=== PATIENT | male | born 1965 | race Caucasian/White ===

== ENCOUNTER 2016-06-17 08:39 | Day surgery (SDC) | payer BC ==
[~2016-06-17] VITALS: Ht 182.9 cm; Wt 113.0 kg
[~2016-06-17 08:39] MED LIST: CEFAZOLIN 2GM PREMIX 50 ML IV ONE; FENTANYL PF 100 MCG/2 ML VIAL. IV PRN; FURO20TA3 PO; HYDR-2762 PO; HYDROMORPHONE 2 MG/ML VIAL. IV PRN; IV RINGERS,LACTATED 1000ML 1,000 ML IV SCH; LIDOCAINE 1% 1 ML SYRINGE. ID PRN; LOSA50TA6 PO; ONDANSETRON PF 4 MG/2 ML VIAL. IV PRN; PROCHLORPERAZINE 10 MG/2 ML VIAL. IV PRN
[2016-06-17] MEDS ORDERED: DESFLURANE > 120 MINUTES IH ONE (09:27)
[2016-06-17] MEDS ORDERED: ROCURONIUM 50 MG/5 ML VIAL. ONE (09:27)
[2016-06-17] MEDS ORDERED: ONDANSETRON PF 4 MG/2 ML VIAL. ONE (09:27)
[2016-06-17] MEDS ORDERED: PROPOFOL 20 ML IV ONE (09:27)
[2016-06-17] MEDS ORDERED: LIDOCAINE 2% 100 MG/5 ML DISP.SYRIN. ONE (09:27)
[2016-06-17] MEDS ORDERED: DEXAMETHASONE SOD PHOS 20 MG/5 ML VIAL. ONE (09:27)
[2016-06-17] MEDS ORDERED: FENTANYL PF 250 MCG/5 ML VIAL. ONE (09:27)
[2016-06-17] MEDS ORDERED: BUPIVACAINE MPF 0.5% 30 ML VIAL. ONE (10:53)
[2016-06-17] MEDS ORDERED: FAMOTIDINE 20 MG/2 ML VIAL ONE (11:05)
[2016-06-17] MEDS ORDERED: METOCLOPRAMIDE HCL 10 MG/2 ML VIAL. ONE (11:05)
[2016-06-17] MEDS: FENTANYL PF 100 MCG/2 ML VIAL. IV PRN ×4 (12:21→12:55)
--- NOTE | 2016-06-17 12:46 | DISCH ---
DISCHARGE INSTRUCTIONS Condition on Discharge Condition on Discharge: Stable Activity After Discharge Activity Instructions for Disc: Activity as tolerated Other activity instructions: advance slowly as symptoms allow Weight Bearing Status after Di: As tolerated Diet after Discharge Diet after Discharge: Regular Wound Incision Care Wound/Incision Care: Ice to area for comfort Other wound/incision instructi: remove dressing in 2 days may then shower Community/Resources/Services Services at Discharge: PT EVALUATE & TREAT Contacting the DRFam after DC Call your doctor for: Concerns you may have Follow-Up Follow up with: Arianna 7-10 days CANDE PETERS MD Jun 17, 2016 12:46
[2016-06-17] MEDS ORDERED: OXYC-244 PO (12:50)
--- NOTE | 2016-06-17 12:54 | PDOC ---
BRIEF OPERATIVE NOTE Date: Jun 17, 2016 Pre-Op Diagnosis medial meniscus tear plus patellofemoral pain Post-Op Diagnosis same Procedure Performed left knee scope partial medial menisectomy Surgeon Arianna Anesthesia Type: General Blood Loss 5cc Findings above Complications none CANDE PETERS MD Jun 17, 2016 12:54
--- NOTE | 2016-06-17 12:57 | HP ---
ADMIT DATE: 06/17/2016 CHIEF COMPLAINT: Left knee pain. HISTORY OF PRESENT ILLNESS: The patient indicates about a 2-month history of severe atraumatic onset left knee pain. It pops and is very painful, bothers him a lot on stairs, also at night, to a lesser extent throughout the day. He walks on concrete all day. He has gotten some relief from the patellofemoral J-brace, no relief whatsoever from viscosupplementation injections and only about 2 days' worth of relief from our previous corticosteroid injection in his left knee. He describes his pain mainly at the outside lateral aspect of the patellofemoral joint and is initially swelled up following bowling but identifies no other traumatic activity. He had a previous knee arthroscopy about 4 years ago. He says this feels a lot different from previous meniscus tear that he had treated. He is taking [place] for pain, but really cannot get relief at night despite taking about 4 at a time. PAST MEDICAL HISTORY: Hypertension. PAST SURGICAL HISTORY: Previous right knee arthroscopy, hernia repair, and right shoulder surgery. FAMILY HISTORY: Denies any significant family history. SOCIAL HISTORY: Denies smoking. Social drinker of alcohol, denies drug use. MEDICATIONS: List is reviewed. ALLERGIES: He has no known drug allergies. REVIEW OF SYSTEMS: Significant for the right knee pain and swelling. Denies any chest pain, shortness of breath, fever, chills, radiating pain, numbness, tingling, focal weakness, abdominal pain, change in bowel or bladder habits, headache, visual changes, any recent respiratory illnesses, or burning on urination. PHYSICAL EXAMINATION: VITAL SIGNS: Per admission sheet. HEENT: Atraumatic, normocephalic. HEART: Regular rate and rhythm. LUNGS: Clear to auscultation bilaterally. ABDOMEN: Benign. EXTREMITIES: Examination of left knee reveals good patellofemoral tracking without tilt or instability. He is tender over the lateral facet of the patella, more so the medial. I was able to reproduce his pain from him raising up from a squatted position, and a pop was reproduced with deep flexion of the knee. He had more pain with Nakia's maneuver in the front of the knee than over the posterior medial aspect. He has stable ligamentous examination, only a trace effusion. Examination of the contralateral knee shows full range of motion, normal ligamentous stability alignment, normal patellofemoral tracking. He has normal alignment, range of motion of bilateral hips and ankles with intact motor function, distal pulses, sensation, reflexes and skin in both lower extremities throughout. IMAGING: MRI shows a posterior horn medial meniscus tear and a small focus of signal change in the posterior weightbearing portion of lateral femoral condyle, but no abnormality of the overlying cartilage. ASSESSMENT: 1. Apparent patellofemoral pain, left knee. 2. Medial meniscus tear, left knee. TREATMENT PLAN: I went over with him the structure and function of the meniscus, the fact that he does have a tear that could cause the complaints and symptoms that he is having. However, they seem to be much more severe than when he had a meniscus tear previously and describes his pain much more at the patellofemoral joint area, particularly getting up from a seated position and sometimes a very painful pop with stairs. This is very limiting to his activities of daily living. He is unresponsive to previous injection and other treatments including exercises, activity modification, and physical therapy. He favors intervention with a definitive solution to the problem. As a result, I think arthroscopy of the knee is a reasonable option. I did caution him however that I cannot undo any degenerative changes, but we would address any mechanical issues such as potential unstable meniscus tear inside the knee and to the extent possible any loose cartilage. However, if he really has severe patellofemoral changes which seem to be the majority of his clinical symptoms best I can discern, and he has already failed injections, we did talk about the possibility as a backup of the patellofemoral joint replacement procedure and also covered the risks, benefits, postoperative course of that procedure previously and reviewed them today including possibility of continued pain, maltracking, nerve or blood vessel damage, possibility of wear and eventual perhaps conversion to an additional procedure, total knee replacement. All of his questions were answered. As we described that further today, he wants to proceed with surgical evaluation and treatment after having given informed consent preoperatively. CANDE PETERS MD DR: SHIRLEY/gisela JOB#: [id number] / [id number]
[2016-06-17] MEDS: MORPHINE SULFATE 2 MG/ML DISP.SYRIN. IV PRN ×2 (13:03→13:24)
[2016-06-17] MEDS ORDERED: OXYCODONE/APAP 7.5/325 TABLET. PO ONE (13:30)
[2016-06-17 13:56] VITALS: BP 163/94
--- NOTE | 2016-06-18 10:14 | ACF ---
Admission Forms Criteria MUSCULOSKELETAL DISEASE GRG Clinical Indications for Admission to Inpatient Care (Place 'X' for any and all applicable criteria): Hospital admission is needed for appropriate care of the patient because of ANY ONE of the following: [X]I. Fracture, dislocation, or other musculoskeletal injury requiring inpatient care(medical) as indicated by ANY ONE of the following(4)(5)(6)(7) [ ]a) Vertebral fracture requiring observation for instability or neurologic compromise (8) [ ]b) Compartment syndrome (proven or cannot be ruled out during observation level of care) (9) [ ]c) Limb-threatening injury [ ]d) Major injury requiring inpatient stabilization such as traction initiation or external fixation before internal fixation or closure of complex or open fracture [ ]e) Major injury requiring inpatient treatment after emergency or observation level care (as appropriate) [X]f) Severe pain requiring acute inpatient management [ ]II. Newly diagnosed or suspected bone, joint, or orthopedic device infection (e.g., osteomyelitis, septic arthritis) needing ANY ONE of the following(1)(2)(3) [ ]a) IV antibiotics that cannot be initiated in other than inpatient setting (e.g., patient too unstable or home infusion not available) [ ]b) Device removal or replacement [ ]c) Bone or soft tissue debridement [ ]d) Joint drainage (drain placement or repetitive aspirations) [ ]III. Severe rheumatologic disease (e.g., systemic lupus erythematosus, rheumatoid arthritis) with complications or comorbidities (Also use Optimal Recovery Care Criteria or General Recovery Criteria as appropriate on the basis of predominant condition), including ANY ONE of the following(10 )(11)(12)(13) [ ]a) Severe infection (e.g., [employer] infection, sepsis) (14) [ ]b) Respiratory complications, including ANY ONE of the following: [ ]i) Pleural effusion with respiratory compromise [ ]ii) Pulmonary hypertension with congestive failure [ ]iii) Respiratory failure [ ]iv) Pulmonary hemorrhage (15) [ ]c) Hematologic disease, including ANY ONE of the following: [ ]i) Coagulopathy with bleeding [ ]ii) Thrombosis with hypercoagulable state [ ]iii) Thrombotic thrombocytopenic purpura [ ]d) Cerebritis with seizures, psychosis, or other severe abnormalities [ ]e) Vertebral destruction with monitoring needed for cervical myelopathy& possible respiratory compromise [ ]f) Exacerbation that requires inpatient treatment (e.g., intravenous immunosuppression) (16) [ ]g) Acute renal failure [ ]IV. Severe vasculitis with complications or comorbidities (Also use Optimal Recovery Care Criteria or General Recovery Criteria as appropriate on the basis of predominant condition), including ANY ONE of the following(11)(12)(17)(18)(19)(20) [ ]a) [employer] vasculitis with seizures, psychosis, or other severe abnormalities (22) [ ]b) Renal failure (16) [ ]c) Pulmonary hemorrhage (15) [ ]d) Cerebral infarction [ ]e) Gastrointestinal ischemia [ ]f) Gangrene or threatened amputation [ ]g) Exacerbation that requires inpatient treatment (e.g., intravenous immunosuppression) (19)(21) [ ]V. Severe myopathy as indicated by ANY ONE of the following (28)(29) [ ]a) New onset of airway compromise or inability to swallow [ ]b) Respiratory deterioration with observation needed for impending respiratory failure [ ]c) Exacerbation that requires inpatient treatment (e.g., intravenous immunosuppression) [ ]. Severe gout (crystal arthropathy) as indicated by ANY ONE of the following (23)(24) [ ]a) Severe pain requiring acute inpatient management [ ]b) Exacerbation that requires inpatient treatment (e.g., intravenous treatment) [ ]VII.Rhabdomyolysis and ANY ONE of the following (25)(26)(27) [ ]a) Acute renal failure [ ]b) Need for intravenous hydration after emergency or observation level care (as appropriate) [ ]c) Inability to maintain oral hydration [ ]d) Change in mental status [ ]e) Electrolyte abnormality that remains after emergency or observation level care (as appropriate) [ ]VIII Post amputation complication, as indicated by ANY ONE of the following [ ]a) Infection [ ]b) Dehiscence [ ]c) Myodesis failure [ ]IX. Severe pain requiring acute inpatient management as indicated by ALL of the following (30)(31)(32) [ ]a) Continuous or frequent (e.g., every 2 to 4 hrs) parenteral analgesics required [A] [ ]b) Rapid improvement expected from treatment or acute intervention ( e.g., surgery, anesthesia procedure[B] [ ]X. Musculoskeletal Disease and ALL of the following: [ ]a) Symptom or finding for which emergency and observation care have failed or are not considered appropriate (Use General Criteria: Observation Care as appropriate) [ ]b) Presence of ANY ONE of the following [ ]i) A General Admission Criteria [ ]ii) A Pediatric General Admission Criteria The original [facility] content created by [facility] has been revised. The portions of the content which have been revised are identified through the use of italic text or in bold, and [facility] has neither reviewed nor approved the modified material. All other unmodified content is copyright [facility]. Please see references footnoted in the original [facility] edition 2016 Admission Criteria Met?: Yes MARIBETH CARRILLO Jun 18, 2016 10:14
--- NOTE | 2016-06-18 13:14 | OP ---
DATE OF SURGERY: 06/17/2016 PREOPERATIVE DIAGNOSES: Left knee medial meniscus tear and patellofemoral pain. POSTOPERATIVE DIAGNOSES: Confirmed medial meniscus tear and patellofemoral cartilage articulation in excellent condition. DESCRIPTION OF PROCEDURES: Left knee arthroscopy, partial medial meniscectomy. SURGEON: Gee Keller M.D. ANESTHESIA: General. ESTIMATED BLOOD LOSS: About 5 mL. COMPLICATIONS: None. OPERATIVE INDICATIONS: The patient is a 50-year-old male who had a left knee arthroscopy about 4 years ago for a meniscus tear. He states this pain seems different to him. It is severe, sharp, and catching. It bothers him with certain activities. Also aching severely at night and has been unresponsive to any type of nonoperative management. He says it is worse getting up from a chair and from stairs, indicates that pain was improved somewhat by a patellofemoral J brace, but really unresponsive to ongoing therapy. An MRI had shown a posterior horn medial meniscus tear. I went over with him that while arthroscopic evaluation and treatment can to a high degree of reliability deal with mechanical issues such as the meniscus, I cannot undo any type of wear and tear changes, I am concerned with his apparent patellofemoral pain unless it is radiating in nature that if there is severe wear I cannot undo that and we did even talk about the possibility of a patellofemoral replacement if there is not sufficient pathology associated with the meniscus or that the patellofemoral joint appears to be severely involved. He is certainly onboard with this approach and understands the risks, benefits, postoperative course including possible complications of continued pain, nerve or blood vessel damage, medical or other anesthetic complications among others. All his questions were answered. Consent was obtained and he agrees to proceed with operative evaluation and treatment. DESCRIPTION OF PROCEDURE: The patient was identified, procedure verified, patient placed in the supine position on the operating table. After adequate amounts of general endotracheal anesthesia were administered, the left lower extremity was prepped and draped in standard sterile fashion with a thigh tourniquet and side post. The knee was first examined under anesthesia and found to have full range of motion and normal ligamentous stability. After timeout was performed, the patient and procedure identified and verified and the leg had been previously prepped and draped in a standard sterile fashion, the leg was exsanguinated by Esmarch bandage. Tourniquet inflated to 350 mmHg and a lateral portal was established. Medial portal established using spinal needle localization and the knee joint was systematically examined. He was found to have a displaceable tear of the posterior horn of the medial meniscus originating in the area of the posterior root, but the root otherwise had good attachment. This area was displaceable into the joint and could certainly cause significant mechanical symptoms. It involved probably about the inner 40% of the meniscal tissue and was trimmed back to stable tissue using arthroscopic punch and shaver and radiused around appropriately to eliminate any stress risers. No loose bodies were noted in the gutters. The ACL was probed and found to be intact. Lateral meniscus was probed and found to be intact as was the medial and lateral compartment cartilage surfaces. No loose bodies in the suprapatellar pouch. He did have minor chondromalacia of the central facet of the patella and it was very isolated and grade 2-3 in nature. The lateral facet of the patella appeared unaffected. Tracking appeared normal. The corresponding trochlear surface really showed no significant chondromalacia. No debridement was required to the patellofemoral joint and I really could not see significant pathology in the patellofemoral joint either in terms of significant chondromalacia wear or tracking. The knee was drained of arthroscopic fluid. Portals closed with nylon suture. Sterile dressings were applied. Toes were noted to be warm and pink following deflation of the tourniquet. The patient was extubated and transferred to postop holding in stable condition having tolerated the procedure well. GEE KELLER MD DR: SHIRLEY/gisela JOB#: [id number] / [id number] AAKASH Reardon
== END 2016-06-17 14:30 | disposition home or self-care (01) ==
LOC: SURG 08:39
PROVIDERS: ATTEND Orthopaedic Surgery
DX: S83.242A Other tear of medial meniscus, current injury, left knee, initial encounter (principal); E66.9 Obesity, unspecified; F41.9 Anxiety disorder, unspecified; I10 Essential (primary) hypertension; K21.9 Gastro-esophageal reflux disease without esophagitis; X58.XXXA Exposure to other specified factors, initial encounter; Y93.9 Activity, unspecified; Y92.9 Unspecified place or not applicable; Y99.9 Unspecified external cause status; Z72.89 Other problems related to lifestyle
CPT/HCPCS: 29881; 97161; 97530; J0690; J0780; J1100; J2270; J2405; J2704; J2765; J3010; S0028; J3490

== ENCOUNTER 2018-05-10 20:21 | Emergency (ER) | payer OTHER, BC ==
[~2018-05-10] VITALS: Ht 180.3 cm; Wt 108.9 kg
[~2018-05-10 20:21] MED LIST changes: -CEFAZOLIN 2GM PREMIX 50 ML IV ONE; -FENTANYL PF 100 MCG/2 ML VIAL. IV PRN; -HYDR-2762 PO; +HYDR-2765 PO; -HYDROMORPHONE 2 MG/ML VIAL. IV PRN; -IV RINGERS,LACTATED 1000ML 1,000 ML IV SCH; -LIDOCAINE 1% 1 ML SYRINGE. ID PRN; +LOSA-73 PO; -LOSA50TA6 PO; -ONDANSETRON PF 4 MG/2 ML VIAL. IV PRN; +OXYC1TAB19 PO; -PROCHLORPERAZINE 10 MG/2 ML VIAL. IV PRN
[2018-05-10] MEDS ORDERED: HYDROcodone/APAP 5/325MG 1 TAB TABLET PO ONE (20:45)
--- NOTE | 2018-05-10 20:46 | PHYS DOC ---
Past Medical History Past Medical History: Hypertension Additional Past Surgical Histo: R shoulder, R knee scope, hernia repair Smoking: Chew Alcohol Use: Heavy Drug Use: None Social History Narrative: lives with Adult General Chief Complaint Chief Complaint: KNEE INJURY HPI HPI Patient is a 52 year old who presents to the ER, accompanied by his , with complaints of left knee pain. Patient states that approximately 1400 today he was walking to work when he slipped on a piece of ice and twisted his left knee. He states that he did not fall. He denies any numbness, tingling, or weakness of the affected extremity. At rest patient rates his pain a 4 out of 10 on the pain scale with activity or weightbearing patient reports the pain increases to 8 out of 10 on the pain scale. Patient reports that he took a naproxen at home with no relief of symptoms. Review of Systems Review of Systems Constitutional: Denies fever or chills [] Musculoskeletal: Denies back pain; seee HPI Integument: Denies rash or skin lesions [] Neurologic: Denies headache, focal weakness or sensory changes [] Current Medications Current Medications Current Medications Medications (Trade) Dose Ordered Sig/Ashleigh Start Time Stop Time Status Last Admin Dose Admin Acetaminophen/ Hydrocodone Bitart (Lortab 5/325) 1 tab 1X ONCE 05/10/18 20:45 05/10/18 20:46 DC 05/10/18 21:06 1 TAB Allergies Allergies Allergies Coded Allergies Type Severity Reaction Last Updated Verified No Known Drug Allergies 06/17/16 No Physical Exam Physical Exam Constitutional: Well developed, well nourished, no acute distress, non-toxic appearance. [] HENT: Normocephalic, atraumatic, bilateral external ears normal, nose normal. [ ] Eyes: PERRLA, conjunctiva normal, no discharge. [] Skin: Warm, dry, no erythema, no rash. [] Extremities: No cyanosis, no clubbing, ROM intact, 1+ edema noted to anterior left knee, increased pain in L knee with anterior and posterior drawer testing and valgus, stress testing. Neurologic: Alert and oriented X 3, normal motor function, normal sensory function, no focal deficits noted. [] Psychologic: Affect normal, judgement normal, mood normal. [] Current Patient Data Vital Signs Vital Signs Date Time Temp Pulse Resp B/P (MAP) Pulse Ox O2 Delivery O2 Flow Rate FiO2 05/10/18 21:06 19 97 Room Air 05/10/18 20:25 98.3 95 155/86 (109) 98.3 EKG EKG [] Radiology/Procedures Radiology/Procedures L knee xray negative for acute fracture or dislocation, read by Dr. Rodriguez[] Course & Med Decision Making Course & Med Decision Making Pertinent Labs and Imaging studies reviewed. (See chart for details) Dx: L knee sprain Pt placed in knee immobilizer, Rx for hydrocodone. Follow up with your orthopedic Dr. Keller if sx persist, return to the ER if sx worsen. [] Dragon Disclaimer Dragon Disclaimer This electronic medical record was generated, in whole or in part, using a voice recognition dictation system. Departure Departure Impression: Primary Impression: Left knee sprain Disposition: HOME, SELF-CARE Condition: STABLE Referrals: CANDE KELLER MD Patient Instructions: Knee Immobilizer, [id number], Knee Sprain, [id number] Additional Instructions: Fill the prescription and use as directed. Rest, ice, and elevate affected extremity. Follow up with Dr. Keller for further evaluation. Return to the ER if symptoms worsen. Scripts Hydrocodone Bit/Acetaminophen (HYDROCODONE-APAP 5-325 ) 1 Tab Tablet 1 TAB PO PRN Q6HRS PRN for PAIN for 3 Days, #12 TAB 0 Refills Prov: DEENA VELASQUEZ ASSOCIATE [employer] 05/10/18 Problem Qualifiers Primary Impression: Left knee sprain Encounter type: initial encounter Involved ligament of knee: unspecified ligament Qualified Codes: S83.92XA - Sprain of unspecified site of left knee, initial encounter DEENA VELASQUEZ ASSOCIATE [employer] May 10, 2018 20:46
[2018-05-10] MEDS ORDERED: HYDR-2761 PO (21:26)
--- NOTE | 2018-05-11 01:29 | RAD ---
KNEE LEFT 3V History: left medial knee pain,swelling after fall 1 day ago, previous meniscal surgery Comparison: None. Findings: 3 views of the left knee are submitted. No acute fracture or dislocation is identified. Impression: 1. No acute osseous abnormality is identified by radiographs. Electronically signed by: Kolby Iqbal MD (05/10/2018 11:39 PM) [facility]
[2018-06-18] MEDS ORDERED: HYDR-3165 PO (08:09)
== END 2018-05-10 21:50 ==
LOC: ER 20:21
DX: S83.92XA Sprain of unspecified site of left knee, initial encounter (principal); I10 Essential (primary) hypertension; F10.20 Alcohol dependence, uncomplicated; Y90.9 Presence of alcohol in blood, level not specified; F17.220 Nicotine dependence, chewing tobacco, uncomplicated; W00.2XXA Other fall from one level to another due to ice and snow, initial encounter; Y93.01 Activity, walking, marching and hiking; Y92.69 Other specified industrial and construction area as the place of occurrence of the external cause; Y99.0 Civilian activity done for income or pay
CPT/HCPCS: 29505; 73562; 99284-25

== ENCOUNTER → 2018-05-27 | Outpatient (CLI) | payer OTHER, BC ==
[2018-05-10 20:25] VITALS: BP 155/86
[~2018-05-27] MED LIST changes: +ALBU2.5V8 INH; +AZIT250T PO; +BENZ100C PO; +HYDR-2761 PO; +HYDR-3165 PO; +PRED20TA PO
--- NOTE | 2018-05-27 14:19 | KCIC ---
Examination: MRI of the left knee without contrast HISTORY: History of left knee pain, fall COMPARISON: None available TECHNIQUE: Multiplanar, multisequence MR imaging of the left knee was performed without contrast. FINDINGS: The anterior cruciate ligament, posterior cruciate ligament appear intact. There is vertical increased signal identified in the periphery of the body of the medial meniscus likely a tear. There is increased signal identified in the posterior horn of the medial meniscus likely degenerative tear. The lateral meniscus appears intact. The medial collateral ligament is intact. The lateral collateral ligamentous complex including the fibular collateral ligament, biceps femoris tendon, popliteus tendon appear intact. Extensor mechanism is intact. Moderate knee joint effusion is identified. The medial retinaculum, lateral retinaculum appear intact. There is deep fissuring of cartilage identified in the medial compartment. There is mild superficial fraying of cartilage of the lateral compartment femoral compartments The extensor mechanism is intact. IMPRESSION: 1. Tear of the body of the medial meniscus. There is increased signal identified in the posterior horn the medial meniscus probably due to degenerative tear. 2. Grade II chondromalacia medial compartment. 3. Moderate knee joint effusion. 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 Electronically signed by: Shamar Hopkins MD (05/27/2018 2:17 PM) [facility]
== END | disposition home or self-care (01) ==
LOC: KCIC MRI 12:59
PROVIDERS: ATTEND Orthopaedic Surgery
DX: S83.242A Other tear of medial meniscus, current injury, left knee, initial encounter (principal); M94.262 Chondromalacia, left knee; M25.462 Effusion, left knee; M17.12 Unilateral primary osteoarthritis, left knee; X58.XXXA Exposure to other specified factors, initial encounter; Y93.89 Activity, other specified; Y92.89 Other specified places as the place of occurrence of the external cause; Y99.8 Other external cause status
CPT/HCPCS: 73721

== ENCOUNTER 2018-06-18 06:59 | Day surgery (SDC) | payer BC, OTHER ==
[~2018-06-18] VITALS: Ht 182.9 cm; Wt 104.3 kg
[~2018-06-18 06:59] MED LIST changes: -ALBU2.5V8 INH; -AZIT250T PO; -BENZ100C PO; +BUPIVAC MPF-EPI 0.5%-1:200000 30 ML VIAL. ONE; -HYDR-3165 PO; -PRED20TA PO
[2018-06-18] MEDS ORDERED: IV RINGERS,LACTATED 1000ML 1,000 ML IV SCH ×2 (07:00)
[2018-06-18] MEDS ORDERED: ONDANSETRON PF 4 MG/2 ML VIAL. IV PRN ×2 (07:00)
[2018-06-18] MEDS ORDERED: LIDOCAINE 1% PF 2 ML VIAL. ID PRN ×2 (07:00)
[2018-06-18] MEDS ORDERED: MORPHINE SULFATE 2 MG/ML VIAL. IV PRN ×2 (07:00)
[2018-06-18] MEDS ORDERED: HYDROmorphone 2 MG/ML VIAL IV PRN ×2 (07:00)
[2018-06-18] MEDS ORDERED: fentaNYL PF VIAL 100 MCG/2 ML VIAL IV PRN ×4 (07:00)
[2018-06-18] MEDS ORDERED: PROCHLORPERAZINE 10 MG/2 ML VIAL. IV PRN ×2 (07:00)
--- NOTE | 2018-06-18 08:07 | DISCH ---
DISCHARGE INSTRUCTIONS Condition on Discharge Condition on Discharge: Stable Activity After Discharge Activity Instructions for Disc: Activity as tolerated, Other, see below ( slowly advance activity as tolerated) Weight Bearing Status after Di: As tolerated Diet after Discharge Diet after Discharge: Regular Wound Incision Care Wound/Incision Care: Ice to area for comfort, Change dressing (May remove dressing after 2 days may then shower no soaking until sutures removed) Contacting the DRFam after DC Call your doctor for: Concerns you may have Follow-Up Follow up with: Dr. Keller 10 days CANDE KELLER MD Jun 18, 2018 08:07
[2018-06-18] MEDS ORDERED: HYDR-3165 PO (08:09)
[2018-06-18] MEDS ORDERED: fentaNYL PF VIAL 100 MCG/2 ML VIAL ONE (08:17)
[2018-06-18] MEDS ORDERED: DEXAMETHASONE SOD PHOS 20 MG/5 ML VIAL. ONE (08:17)
[2018-06-18] MEDS ORDERED: PROPOFOL 40 ML IV ONE (08:17)
[2018-06-18] MEDS ORDERED: MIDAZOLAM HCL/PF 2 MG/2 ML VIAL. ONE (08:17)
[2018-06-18] MEDS ORDERED: ONDANSETRON PF 4 MG/2 ML VIAL. ONE (08:17)
[2018-06-18] MEDS ORDERED: FAMOTIDINE 20 MG/2 ML VIAL ONE (08:17)
[2018-06-18] MEDS ORDERED: LIDOCAINE 2% PF 5 ML VIAL. ONE (08:17)
[2018-06-18] MEDS ORDERED: KETOROLAC 30 MG/ML INJ FOR OR. INJ ONE (08:37)
--- NOTE | 2018-06-18 09:31 | PDOC4 ---
Operative Note Operative Note Date of surgery: 06/18/2018 Preoperative diagnosis: Medial meniscus tear Postoperative diagnosis: Same plus chondral flap tear medial femoral condyle Operative procedure: Left knee arthroscopy partial medial meniscectomy and chondroplasty medial femoral condyle Surgeon: Arianna Anesthesia: Gen. Estimated blood loss: 2 mL Complications: None Operative indications: Miguel A is a 52-year-old male with pain and mechanical symptoms and swelling of his left knee unresponsive to nonoperative treatment and was noted to have medial meniscus tear on MRI which was consistent with his clinical symptoms. We had gone over structure and function of the meniscus the rationale for removal of the damaged portion and the fact that I cannot undo any degenerative changes in the knee other than that. All his questions were answered he wishes to proceed with surgical evaluation and treatment Operative text: Patient was identified procedure verified patient placed in the supine position on the operating table. After adequate amounts of general anesthesia were administered the left lower extremity was prepped and draped in standard sterile fashion with a thigh tourniquet. After timeout was performed patient procedure identified and verified the left lower extremity was exsanguinated by Esmarch bandage tourniquet inflated to 250 mmHg a lateral portal was established a medial portal established using spinal needle localization and the knee joint was systematically examined patellofemoral articulation was noted to be overall in good condition with minimal chondromalacia and no loose bodies noted in the gutters or suprapatellar pouch area medial meniscus was probed and found to have a displaced tear at the junction of the body and posterior horn he also had significant fraying toward the posterior root. The tear was taken back with arthroscopic punch and shaver to stable meniscal rim throughout any cartilage fragments were removed with the arthroscopic shaver. He also had a partial thickness chondral flap tear of the weightbearing surface centrally in the medial femoral condyle which was trimmed back to stable tissue with the arthroscopic shaver. ACL and lateral meniscus were probed and found to be intact the knee joint was drained of arthroscopic fluid portals closed with nylon suture he was injected with about 25 mL of half percent Marcaine with epinephrine sterile dressings were applied he was returned recovery room in stable condition having tolerated procedure well. Toes were noted be warm pink following deflation of the tourniquet CANDE PETERS MD Jun 18, 2018 09:31
[2018-06-18 10:40] VITALS: BP 130/76
== END 2018-06-18 10:40 | disposition home or self-care (01) ==
LOC: SURG 06:59
PROVIDERS: ATTEND Orthopaedic Surgery
DX: S83.242A Other tear of medial meniscus, current injury, left knee, initial encounter (principal); I10 Essential (primary) hypertension; Z98.890 Other specified postprocedural states; X58.XXXA Exposure to other specified factors, initial encounter; Y93.89 Activity, other specified; Y92.89 Other specified places as the place of occurrence of the external cause; Y99.8 Other external cause status
CPT/HCPCS: 29881; A7015; C1782; J0696; J1100; J1885; J2001; J2250; J2405; J2704; J3010; J3490

== ENCOUNTER 2018-08-24 03:58 | Emergency (ER) | payer BC, OTHER ==
[~2018-08-24] VITALS: Ht 182.9 cm; Wt 104.3 kg
[~2018-08-24 03:58] MED LIST changes: -BUPIVAC MPF-EPI 0.5%-1:200000 30 ML VIAL. ONE; +HYDR-3165 PO
[2018-08-24 04:01] VITALS: BP 152/99
[2018-08-24] MEDS ORDERED: AZIT250T PO (04:24)
[2018-08-24] MEDS ORDERED: ALBU2.5V8 INH (04:24)
[2018-08-24] MEDS ORDERED: PRED20TA PO (04:24)
--- NOTE | 2018-08-24 04:24 | PHYS DOC ---
Past Medical History Past Medical History: Hypertension Additional Past Medical Histor: Pre-diabeties Past Surgical History: Other Additional Past Surgical Histo: R shoulder, R knee scope, hernia repair Additional Information: Nonsmoker Alcohol Use: Heavy Drug Use: None Adult General Chief Complaint Chief Complaint: COUGH HPI HPI 52-year-old male presents with report of progressive cough over the last 1-2 weeks. Patient reports productive in nature. Denies fever or chills. Denies known trauma. Denies leg or calf tenderness. Patient denies known sick contacts. Patient reports cough is worse with laying down. Denies history of COPD/emphysema or CHF. Reports some chest wall discomfort with cough. Review of Systems Review of Systems Constitutional: Denies fever or chills Eyes: Denies redness or eye pain HENT: Reports nasal congestion and sore throat Respiratory: Reports cough, orthopnea, and shortness of breath Cardiovascular: Denies chest pain or palpitations GI: Denies nausea or vomiting : Denies dysuria or hematuria Musculoskeletal: Denies back pain or joint pain Integument: Denies rash or skin lesions Neurologic: Denies headache, focal weakness or sensory changes Complete systems were reviewed and found to be within normal limits, except as documented in this note. Current Medications Current Medications Current Medications Medications (Trade) Dose Ordered Sig/Ashleigh Start Time Stop Time Status Last Admin Dose Admin Dexamethasone (Decadron) 10 mg 1X ONCE 08/24/18 04:30 08/24/18 04:31 DC 08/24/18 04:43 10 MG Allergies Allergies Allergies Coded Allergies Type Severity Reaction Last Updated Verified No Known Drug Allergies 06/17/18 No Physical Exam Physical Exam Constitutional: Well developed, well nourished, no acute distress, non-toxic appearance HENT: Normocephalic, atraumatic, oropharynx moist, nasal congestion noted, post nasal drip noted Eyes: Conjunctiva normal, no discharge Neck: Normal range of motion, no tenderness, supple Cardiovascular: Heart rate normal, regular rhythm Lungs & Thorax: Bilateral breath sounds clear to auscultation, no wheezing Abdomen: Soft, no tenderness, abdominal wall diastasis Skin: Warm, dry, no erythema, no rash Extremities: No tenderness, ROM intact, no edema Neurologic: Alert and oriented X 3, no focal deficits noted Psychologic: Affect normal, judgement normal, mood normal Current Patient Data Vital Signs Vital Signs Date Time Temp Pulse Resp B/P (MAP) Pulse Ox O2 Delivery O2 Flow Rate FiO2 08/24/18 04:01 97.9 81 20 152/99 (116) 91 Room Air 97.9 EKG EKG @0405 NSR at 81bpm, NO ST elevation, Q wave in III, incomplete RBBB Radiology/Procedures Radiology/Procedures 2 view CXR: (preliminary interpretation by ED physician): No acute infiltration, bibasilar atelectasis noted Course & Med Decision Making Course & Med Decision Making Pertinent Imaging studies reviewed. (See chart for details) Patient presents with history of present illness and physical exam consistent for acute bronchitis. Chest x-ray without acute process. EKG stable. Symptomatic treatment provided with oral steroid. Patient stable for discharge with outpatient follow-up with PCP. Discussed findings and plan with patient and family, who acknowledge understanding and agreement. Dragon Disclaimer Dragon Disclaimer This electronic medical record was generated, in whole or in part, using a voice recognition dictation system. Departure Departure Impression: Primary Impression: Bronchitis Disposition: HOME, SELF-CARE Condition: STABLE Referrals: NON,STAFF (PCP) Patient Instructions: Acute Bronchitis, [id number] Scripts Benzonatate (TESSALON PERLE) 100 Mg Capsule 1 CAP PO TID PRN for COUGH, #21 CAP Prov: BRENT SHARMA DO 08/24/18 Azithromycin (ZITHROMAX) 250 Mg Tablet 1 PKG PO UD, #6 TAB Take 2 tablets on day 1 and then 1 tablet each day for the next 4 days as directed Prov: BRENT SHARMA DO 08/24/18 Prednisone (PREDNISONE) 20 Mg Tablet 2 TAB PO DAILY, #8 TAB Start this prescription tomorrow, 08/25/18 Prov: BRENT SHARMA DO 08/24/18 Albuterol Sulfate (Proair Hfa) 8.5 Gm Hfa.aer.ad 1 PUFF INH PRN Q6HRS PRN for WHEEZING, #1 INHALER Prov: BRENT SHARMA DO 08/24/18 BRENT SHARMA DO August 24, 2018 04:24
[2018-08-24] MEDS ORDERED: DEXAMETHASONE 4 MG TABLET PO ONE (04:30)
[2018-08-24] MEDS ORDERED: BENZ100C PO (04:31)
--- NOTE | 2018-08-24 06:15 | EKG ---
[address] [place] [address] Test Date: 2018-08-24 Test Time: 04:05:28 Pat Name: ESTUARDO HI Department: Room: Gender: M Special Education Associate: : 1965 Requested By: BRENT SHARMA Order Number: [id number] Reading MD: Measurements Intervals [place] Rate: 81 P: 47 [place]: 172 QRS: 29 QRSD: 108 T: 22 QT: 380 QTc: 442 Interpretive Statements SINUS RHYTHM INCOMPLETE RIGHT BUNDLE BRANCH BLOCK OTHERWISE NORMAL ECG RI6.01 Unconfirmed report No previous ECG available for comparison
--- NOTE | 2018-08-24 08:16 | RAD ---
CHEST PA LATERAL Clinical indications: Cough. COMPARISON: None available. Findings: Mild left lung base infiltrate is seen in the frontal view. No pleural effusion or pneumothorax is seen. The heart size is mildly enlarged. The pulmonary vasculature, mediastinum and both lily are unremarkable. The osseous structures appear intact. Impression: Mild left lung base infiltrate. Mild cardiomegaly. Electronically signed by: Jian Gore MD (08/24/2018 8:13 AM) [id number]
== END 2018-08-24 04:45 | disposition home or self-care (01) ==
LOC: ER 03:58
DX: J40 Bronchitis, not specified as acute or chronic (principal); R09.82 Postnasal drip; I10 Essential (primary) hypertension; F10.20 Alcohol dependence, uncomplicated; Y90.9 Presence of alcohol in blood, level not specified
CPT/HCPCS: 71046; 93005; 99284; J8540

== ENCOUNTER → 2018-12-10 | Outpatient (CLI) | payer BC ==
[~2018-12-10] MED LIST changes: +ALBU2.5V8 INH; +AZIT250T PO; +BENZ100C PO; +PRED20TA PO
--- NOTE | 2018-12-10 09:31 | KCIC ---
CT HEAD WO CONTRAST History: Seizure, fall, history of alcohol abuse Comparison: None. Technique: Noncontrast CT imaging was performed of the head. Exposure: One or more of the following individualized dose reduction techniques were utilized for this examination: 1. Automated exposure control 2. Adjustment of the mA and/or kV according to patient size 3. Use of iterative reconstruction technique. Findings: No acute hyperdense parenchymal hemorrhage is identified. There is no significant midline shift. Ventricular size is within normal limits. There is mild prominence of bifrontal subarachnoid spaces. There is thin hyperdensity along the falx and anterior left tentorium asymmetric with the right about 0.2 cm in greatest thickness. There is some patchy ethmoid air cell mucosal thickening. There is mild deviation of the nasal septum to the right. Mastoid air cells are aerated. No acute calvarial abnormality is identified. Impression: 1. There is thin hyperdensity along the posterior falx and anterior left tentorium suspicious for tiny subdural hematoma, no previous exam to evaluate for change. Follow-up CT or evaluation with MRI may be beneficial. 2. There is prominence of bifrontal subarachnoid spaces, compatible with involutional change. Findings discussed with nurse Oh in the office of FELIPA DORAN at 12/10/2018 9:28 AM. FOR INTERNAL CODING PURPOSES RESULT CODE: (C) Electronically signed by: Kolby Iqbal MD (12/10/2018 9:28 AM) [id number]
== END | disposition home or self-care (01) ==
LOC: KCIC CT 08:26
PROVIDERS: ATTEND Family Medicine
DX: J34.2 Deviated nasal septum (principal); I10 Essential (primary) hypertension; Z86.59 Personal history of other mental and behavioral disorders; Z86.69 Personal history of other diseases of the nervous system and sense organs
CPT/HCPCS: 70450

== ENCOUNTER → 2018-12-24 | Outpatient (CLI) | payer BC ==
--- NOTE | 2018-12-24 16:55 | KCIC ---
MRI Brain without contrast History: Subdural hematoma, seizure, fall Technique: Multiplanar, multisequential noncontrast MR imaging was performed of the brain. Comparison: December 10, [address] exam Findings: There is no evidence of recent infarct. There is no intra-axial mass effect or midline shift. No extra-axial fluid collection including subdural hematoma is identified on this exam. There is mild generalized supratentorial involutional change, ventricular size proportionate to sulcal spaces. There is very mild T2 and FLAIR hyperintense signal of the periventricular white matter bilaterally, also a few scattered tiny foci of the deep white matter. There is also a somewhat round focus of FLAIR and T2 hyperintense signal of the left temporal lobe image 16 series 10 about 0.5 cm. There is no significant hemosiderin deposition of the brain parenchyma. Right vertebral artery flow-void is not well-visualized and likely hypoplastic. There is slightly disconjugate gaze. There is patchy xfdm-il-[id number] ethmoid air cell mucosal thickening. There is mild deviation of the nasal septum to the right. There is very minimal sphenoid sinus mucosal thickening. Mastoid air cells are aerated. There is nonspecific heterogeneous low signal of the marrow of the clivus. Pituitary gland is small. Cerebellar tonsils are normal in location. Impression: 1. There is no evidence of recent infarct or evidence of subdural hematoma on this exam. 2. There is focus of somewhat round FLAIR and T2 hyperintense signal of the left temporal lobe about 0.5 cm, could be a focus of nonspecific gliosis although given somewhat round margin and history of seizures, post contrast imaging to evaluate for enhancement is advised. There is other minimal nonspecific T2 and FLAIR hyperintense signal of the supratentorial parenchyma which could be due to chronic microvascular ischemic disease. There is mild generalized supratentorial atrophy. 3. There is nonspecific decreased signal of the marrow of the clivus, could be due to hyperplastic red marrow as can be associated with chronic or systemic stress reaction or hypoxia assuming no clinical suspicion for other marrow disorder. Electronically signed by: Kolby Iqbal MD (12/24/2018 4:52 PM) [facility]
== END | disposition home or self-care (01) ==
LOC: KCIC MRI 15:29
PROVIDERS: ATTEND Family Medicine
DX: S06.5X9A Traumatic subdural hemorrhage with loss of consciousness of unspecified duration, initial encounter (principal); G31.89 Other specified degenerative diseases of nervous system; W18.39XA Other fall on same level, initial encounter; Y93.89 Activity, other specified; Y92.89 Other specified places as the place of occurrence of the external cause; Y99.8 Other external cause status
CPT/HCPCS: 70551

== ENCOUNTER 2019-04-26 18:33 | Inpatient (IN) | payer BC ==
[~2019-04-26] VITALS: Ht 182.9 cm; Wt 101.3 kg
--- NOTE | 2019-04-26 18:50 | EKG ---
[facility] [address] [place] [address] Test Date: 2019-04-26 Test Time: 18:41:57 Pat Name: ESTUARDO HI Department: Room: Gender: M Director [employer]: : 1965 Requested By: LOREN MARTINO Order Number: [id number] Reading MD: Measurements Intervals [place] Rate: 83 P: 47 [place]: 158 QRS: 37 QRSD: 102 T: 24 QT: 372 QTc: 443 Interpretive Statements SINUS RHYTHM INCOMPLETE RIGHT BUNDLE BRANCH BLOCK NO SPECIFIC ECG ABNORMALITIES RI6.01 No previous ECG available for comparison
--- NOTE | 2019-04-26 18:50 | PHYS DOC ---
Past Medical History Past Medical History: GERD, Hypertension Additional Past Medical Histor: Pre-diabeties Past Surgical History: Other Additional Past Surgical Histo: R shoulder, R knee scope, hernia repair Alcohol Use: Heavy Drug Use: None Adult General Chief Complaint Chief Complaint: CHEST PAIN HPI HPI 53-year-old male with underlying history of hypertension and diabetes. Patient has a history of not feeling well today states his blood sugar was high. Patient as well describes chest pain in center aspect of his chest with no radiation. Described as dull sensation. He denies any nausea, vomiting, shortness of breath. He does complain of headache. Nothing makes his symptoms worse, nothing makes his symptoms better. States he is on no insulin therapy, just on metformin orally. No recent changes. Review of Systems Review of Systems Constitutional: Denies fever or chills [] Respiratory: Denies cough or shortness of breath [] Cardiovascular: No additional information not addressed in HPI [] GI: Denies abdominal pain, nausea, vomiting, bloody stools or diarrhea [] Musculoskeletal: Denies back pain or joint pain [] Integument: Denies rash or skin lesions [] Neurologic: Denies headache, focal weakness or sensory changes [] All other systems were reviewed and found to be within normal limits, except as documented in this note. Current Medications Current Medications Current Medications Medications (Trade) Dose Ordered Sig/[facility] Start Time Stop Time Status Last Admin Dose Admin Aspirin (Children'S Aspirin) 324 mg 1X ONCE 04/26/19 19:00 04/26/19 19:01 DC 04/26/19 19:01 324 MG Insulin Human Regular (HumuLIN R VIAL) 10 unit 1X ONCE 04/26/19 19:45 04/26/19 19:46 DC 04/26/19 20:23 10 UNIT Nitroglycerin (Nitrostat) 0.4 mg PRN Q5MIN PRN 04/26/19 19:00 04/27/19 18:59 04/26/19 19:02 0.4 MG Sodium Chloride 1,000 ml @ 1,000 mls/hr 1X ONCE 04/26/19 19:45 04/26/19 20:44 DC 04/26/19 20:23 1,000 MLS/HR Allergies Allergies Allergies Coded Allergies Type Severity Reaction Last Updated Verified No Known Drug Allergies 06/17/18 No Physical Exam Physical Exam Constitutional: Well developed, well nourished, no acute distress, non-toxic appearance. [] HENT: Normocephalic, atraumatic, bilateral external ears normal, oropharynx moist, no oral exudates, nose normal. [] Eyes: PERRLA, EOMI, conjunctiva normal, no discharge. [] Cardiovascular:Heart rate regular rhythm, no murmur [] Lungs & Thorax: Bilateral breath sounds clear to auscultation [] Abdomen: Bowel sounds normal, soft, no tenderness, no masses, no pulsatile masses. [] Skin: Warm, dry, no erythema, no rash. [] Back: No tenderness, no CVA tenderness. [] Extremities: No tenderness, no edema. [] Neurologic: Alert and oriented X 3, no focal deficits noted. [] Psychologic: Affect normal, judgement normal, mood normal. [] Current Patient Data Vital Signs Vital Signs Date Time Temp Pulse Resp B/P (MAP) Pulse Ox O2 Delivery O2 Flow Rate FiO2 04/26/19 19:02 76 159/85 04/26/19 18:38 97.8 16 97 Room Air 97.8 Lab Values Laboratory Tests Test 04/26/19 18:44 04/26/19 18:45 04/26/19 19:38 Glucose (Fingerstick) 478 mg/dL (70-99) H White Blood Count 8.5 x10^3/uL (4.0-11.0) Red Blood Count 6.20 x10^6/uL (4.30-5.70) H Hemoglobin 15.5 g/dL (13.0-17.5) Hematocrit 46.3 % (39.0-53.0) Mean Corpuscular Volume 75 fL (79-100) L Mean Corpuscular Hemoglobin 25 pg (25-35) Mean Corpuscular Hemoglobin Concent 34 g/dL (31-37) Red Cell Distribution Width 13.7 % (11.5-14.5) Platelet Count 206 x10^3/uL (140-400) Neutrophils (%) (Auto) 70 % (31-73) Lymphocytes (%) (Auto) 23 % (24-48) L Monocytes (%) (Auto) 5 % (0-9) Eosinophils (%) (Auto) 2 % (0-3) Basophils (%) (Auto) 1 % (0-3) Neutrophils # (Auto) 6.0 x10^3/uL (1.8-7.7) Lymphocytes # (Auto) 1.9 x10^3/uL (1.0-4.8) Monocytes # (Auto) 0.4 x10^3/uL (0.0-1.1) Eosinophils # (Auto) 0.1 x10^3/uL (0.0-0.7) Basophils # (Auto) 0.1 x10^3/uL (0.0-0.2) Sodium Level 130 mmol/L (136-145) L Potassium Level 4.4 mmol/L (3.5-5.1) Chloride Level 95 mmol/L (98-107) L Carbon Dioxide Level 25 mmol/L (21-32) Anion Gap 10 (6-14) Blood Urea Nitrogen 13 mg/dL (8-26) Creatinine 1.1 mg/dL (0.7-1.3) Estimated GFR (Cockcroft-Gault) 69.5 BUN/Creatinine Ratio 12 (6-20) Glucose Level 582 mg/dL (70-99) *H Calcium Level 9.3 mg/dL (8.5-10.1) Magnesium Level 1.8 mg/dL (1.8-2.4) Total Bilirubin 0.6 mg/dL (0.2-1.0) Aspartate Amino Transferase (AST) 15 U/L (15-37) Alanine Aminotransferase (ALT) 20 U/L (16-63) Alkaline Phosphatase 75 U/L (46-116) Troponin I Quantitative < 0.017 ng/mL (0.000-0.055) KP-Dbq-B-Type Natriuretic Peptide 81 pg/mL (0-124) Total Protein 7.2 g/dL (6.4-8.2) Albumin 3.9 g/dL (3.4-5.0) Albumin/Globulin Ratio 1.2 (1.0-1.7) Urine Collection Type Unknown Urine Color Yellow Urine Clarity Clear Urine pH 5.0 Urine Specific [place] >=1.030 Urine Protein Negative mg/dL (NEG-TRACE) Urine Glucose (UA) >=1000 mg/dL (NEG) Urine Ketones (Stick) Negative mg/dL (NEG) Urine Blood Negative (NEG) Urine Nitrite Negative (NEG) Urine Bilirubin Negative (NEG) Urine Urobilinogen Dipstick 0.2 mg/dL (0.2 mg/dL) Urine Leukocyte Esterase Negative (NEG) Urine RBC 0 /HPF (0-2) Urine WBC 0 /HPF (0-4) Urine Squamous Epithelial Cells Occ /LPF Urine Bacteria 0 /HPF (0-FEW) Urine Mucus Slight /LPF Laboratory Tests 04/26/19 18:45 Laboratory Tests 04/26/19 18:45 EKG EKG EKG reveals no STEMI, heart rate 83, normal axis[] Radiology/Procedures Radiology/Procedures [] Course & Med Decision Making Course & Med Decision Making Pertinent Labs and Imaging studies reviewed. (See chart for details) []53-year-old male with underlying history of hypertension and diabetes. Patient has a history of not feeling well today states his blood sugar was high. Patient as well describes chest pain in center aspect of his chest with no radiation. Described as dull sensation. He denies any nausea, vomiting, shortness of breath. He does complain of headache. Nothing makes his symptoms worse, nothing makes his symptoms better. States he is on no insulin therapy, just on metformin orally. No recent changes. Labs and imaging reviewed Cardiac enzymes negative 1, anion gap is 10, blood sugars 582, sodium 1:30, urinalysis negative, EKG as discussed above with no STEMI, heart rate 83, normal axis. He received IV fluids 1 L, 10 units of regular insulin subcutaneous, nitroglycerin, aspirin. Chest pain has resolved Discussed observation admission with patient HEART Score 4 Dragon Disclaimer Dragon Disclaimer This electronic medical record was generated, in whole or in part, using a voice recognition dictation system. The HEART Score for CP Pts HEART Score for Chest Pain: HEART Score for Chest Pain Response (Comments) Value History Moderately Suspicious 1 ECG Nonspecific Repolarizatio 1 Age >45 - < 65 1 Risk Factors 1 or 2 Risk Factors 1 Troponin < Normal Limit 0 Total 4 Risk Factors: Risk Factors: DM, Current or recent (<one month) smoker, HTN, HLP, family history of CAD, obesity. Risk Scores: Score 0 - 3: 2.5% MACE over next 6 weeks - Discharge Home Score 4 - 6: 20.3% MACE over next 6 weeks - Admit for Clinical Observation Score 7 - 10: 72.7% MACE over next 6 weeks - Early Invasive Strategies Departure Departure Impression: Primary Impression: Chest pain Additional Impressions: Uncontrolled diabetes mellitus Hypertension Disposition: 09 ADMITTED INPATIENT Admitting Physician: TOMI Condition: STABLE Referrals: FELIPA DORAN MD (PCP) Problem Qualifiers Primary Impression: Chest pain Chest pain type: unspecified Qualified Codes: R07.9 - Chest pain, unspecified Additional Impressions: Uncontrolled diabetes mellitus Diabetes mellitus type: type 2 Glycemic state: with hyperglycemia Qualified Codes: E11.65 - Type 2 diabetes mellitus with hyperglycemia Hypertension Hypertension type: essential hypertension Qualified Codes: I10 - Essential (primary) hypertension LOREN MARTINO MD Apr 26, 2019 18:50
[2019-04-26 18:58] LABS: BASO # 0.1 x10^3/uL (0.0-0.2); BASO % 1 % (0-3); EOS # 0.1 x10^3/uL (0.0-0.7); EOS % 2 % (0-3); HEMATOCRIT 46.3 % (39.0-53.0); HEMOGLOBIN 15.5 g/dL (13.0-17.5); LYMPH # 1.9 x10^3/uL (1.0-4.8); LYMPH % 23 % (24-48); MEAN CORPUSCULAR HEMOGLOBIN 25 pg (25-35); MEAN CORPUSCULAR HGB CONC 34 g/dL (31-37); MEAN CORPUSCULAR VOLUME 75 fL (79-100); MONO # 0.4 x10^3/uL (0.0-1.1); MONO % 5 % (0-9); NEUT % 70 % (31-73); PLATELET COUNT 206 x10^3/uL (140-400); RED CELL DISTRIBUTION WIDTH 13.7 % (11.5-14.5); WHITE BLOOD COUNT 8.5 x10^3/uL (4.0-11.0)
[2019-04-26] MEDS ORDERED: ASPIRIN CHEWABLE 81 MG TABLET. PO ONE (19:00)
[2019-04-26] MEDS ORDERED: NITROGLYCERIN SUBLINGUAL 0.4 MG BOTTLE OF 25. SL PRN ×2 (19:00→21:00)
[2019-04-26 19:20] LABS: ALBUMIN 3.9 g/dL (3.4-5.0); ALBUMIN/GLOBULIN RATIO 1.2 (1.0-1.7); CALCIUM 9.3 mg/dL (8.5-10.1); CREATININE 1.1 mg/dL (0.7-1.3); GFR 69.5; MAGNESIUM 1.8 mg/dL (1.8-2.4); POTASSIUM 4.4 mmol/L (3.5-5.1); TOTAL BILIRUBIN 0.6 mg/dL (0.2-1.0); TOTAL PROTEIN 7.2 g/dL (6.4-8.2)
--- NOTE | 2019-04-26 19:30 | RAD ---
Examination: PORTABLE CHEST 1V History: Chest pain Comparison/Correlation: None Findings: Portable upright frontal view of the chest was obtained. Heart size and pulmonary vasculature are normal. No infiltrate or pleural effusion. No pneumothorax. Bony structures are unremarkable. Impression: No suspicious process. Electronically signed by: Souleymane Russell MD (04/26/2019 7:27 PM) [id number]
[2019-04-26] MEDS ORDERED: INSULIN REGULAR 100 UNIT/ML 3ML VIAL. SQ ONE (19:45)
[2019-04-26] MEDS ORDERED: IV NORMAL SALINE 1000ML BAG 1,000 ML IV ONE (19:45)
[2019-04-26 19:51] LABS: BILIRUBIN,URINE NEGATIVE (NEG); CLARITY,URINE CLEAR; COLOR,URINE YELLOW; NITRITE,URINE NEGATIVE (NEG); PROTEIN,URINE NEGATIVE (NEG-TRACE); UROBILINOGEN,URINE 0.2 mg/dL (0.2 mg/dL)
[2019-04-26 19:57] LABS: SQUAMOUS EPITHELIAL CELL,UR OCC /LPF
[2019-04-26 19:58] LABS: BACTERIA,URINE 0 /HPF (0-FEW); RBC,URINE 0 /HPF (0-2); WBC,URINE 0 /HPF (0-4)
[2019-04-26] MEDS ORDERED: ONDANSETRON PF 4 MG/2 ML VIAL. IV PRN (21:00)
[2019-04-26] MEDS ORDERED: ACETAMINOPHEN 325 MG TABLET. PO PRN (21:00)
[2019-04-26] MEDS ORDERED: MORPHINE SULFATE 2 MG/ML VIAL. IV PRN (21:00)
[2019-04-26] MEDS ORDERED: DEXTROSE 50% 25 GM / 50ML DISP.SYRIN. IV PRN (21:00)
[2019-04-26] MEDS ORDERED: IV DEXTROSE 5% 250 ML BAG. IV PRN (21:00)
[2019-04-26 22:07] VITALS: BP 103/68
[2019-04-26] MEDS ORDERED: LORA10TA68 PO (23:10)
[2019-04-26] MEDS ORDERED: BUSP5TAB PO (23:10)
[2019-04-26] MEDS ORDERED: METF500T16 PO (23:10)
[2019-04-26] MEDS ORDERED: MELA10TA2 PO (23:10)
[2019-04-26] MEDS ORDERED: ESCI10TA2 PO (23:10)
[2019-04-26] MEDS ORDERED: DOXE10CA PO (23:10)
[2019-04-26] MEDS ORDERED: GLIM1TAB7 PO (23:10)
[2019-04-26] MEDS ORDERED: RANI150T2 PO (23:10)
[2019-04-26] MEDS ORDERED: HYDR25CA75 PO (23:10)
[2019-04-26] MEDS ORDERED: TRAZ-123 PO (23:10)
[2019-04-26] MEDS ORDERED: hydrOXYzine 25 MG TABLET PO PRN (23:30)
[2019-04-26] MEDS ORDERED: HYDROcodone/APAP 7.5/325MG 1 TAB TABLET PO PRN (23:30)
[2019-04-26] MEDS ORDERED: BENZONATATE 100 MG CAPSULE. PO PRN (23:30)
[2019-04-26] MEDS ORDERED: traZODone 100 MG TABLET. PO PRN (23:30)
[2019-04-27] MEDS: ZOLPIDEM 5 MG TABLET. PO PRN ×2 (00:20→21:27)
[2019-04-27 02:23] VITALS: BP 140/75
[2019-04-27 03:24] LABS: BASO % 1 % (0-3); EOS # 0.2 x10^3/uL (0.0-0.7); EOS % 3 % (0-3); HEMATOCRIT 42.4 % (39.0-53.0); HEMOGLOBIN 14.3 g/dL (13.0-17.5); LYMPH # 2.5 x10^3/uL (1.0-4.8); LYMPH % 34 % (24-48); MEAN CORPUSCULAR HEMOGLOBIN 25 pg (25-35); MEAN CORPUSCULAR HGB CONC 34 g/dL (31-37); MEAN CORPUSCULAR VOLUME 74 fL (79-100); MONO # 0.4 x10^3/uL (0.0-1.1); MONO % 6 % (0-9); NEUT # 4.2 x10^3/uL (1.8-7.7); NEUT % 57 % (31-73); PLATELET COUNT 193 x10^3/uL (140-400); RED BLOOD COUNT 5.75 x10^6/uL (4.30-5.70); RED CELL DISTRIBUTION WIDTH 13.8 % (11.5-14.5); WHITE BLOOD COUNT 7.4 x10^3/uL (4.0-11.0)
[2019-04-27 04:53] LABS: ALBUMIN 3.4 g/dL (3.4-5.0); ALBUMIN/GLOBULIN RATIO 1.1 (1.0-1.7); CALCIUM 8.8 mg/dL (8.5-10.1); CREATININE 1.1 mg/dL (0.7-1.3); GFR 69.5; POTASSIUM 3.8 mmol/L (3.5-5.1); TOTAL BILIRUBIN 0.4 mg/dL (0.2-1.0); TOTAL PROTEIN 6.4 g/dL (6.4-8.2)
[2019-04-27 07:50] VITALS: BP 129/78
[2019-04-27 11:35] VITALS: BP 135/75
[2019-04-27] MEDS: INSULIN LISPRO 300 UNITS/3 ML VIAL. SQ SCH ×3 (12:00→17:53)
--- NOTE | 2019-04-27 12:28 | PDOC2 ---
EBONY QUEEN MEDICAL SECRETARY RECEPTIONIST 04/27/19 1228: CARDIAC CONSULT DATE OF CONSULT Date of Consult DATE: 04/27/19 TIME: 12:24 REASON FOR CONSULT Reason for Consult: Chest pain Hypertension REFERRING PHYSICIAN Referring Physician: Dr. Gonzales SOURCE Source: Chart review, Patient HISTORY OF PRESENT ILLNESS HISTORY OF PRESENT ILLNESS This is a 53 yo male who presented secondary to chest pain and elevated glucose. Patient reports pain began yesterday around noon. Located in his central chest. Describes as dull ache. [place] slightly dizzy. No shortness of breath, diaphoresis, palpitations, or nausea/vomiting. Pain persisted so he can to the ED for further evaluation and treatment. Pain relieved with nitro in ED and has had no further pain overnight or today. PAST MEDICAL HISTORY Cardiovascular: HTN Pulmonary: Other (ZACARIAS) CENTRAL NERVOUS SYSTEM: Seizure GI: GERD Psych: Anxiety Musculoskeletal: Osteoarthritis Endocrine: Diabetes PAST SURGICAL HISTORY Past Surgical History: Hernia Repair FAMILY HISTORY Family History: Other (no pertinent histroy ) SOCIAL HISTORY Smoke: Quit ALCOHOL: other (h/o alcoholism; quit 114 days ago) Drugs: None Lives: with Family CURRENT MEDICATIONS CURRENT MEDICATIONS Current Medications Medications (Trade) Dose Ordered Sig/Ashleigh Route PRN Reason Start Time Stop Time Status Last Admin Dose Admin Aspirin (Children'S Aspirin) 324 mg 1X ONCE PO 04/26/19 19:00 04/26/19 19:01 DC 04/26/19 19:01 Nitroglycerin (Nitrostat) 0.4 mg PRN Q5MIN PRN SL CP RATING > 1/10 04/26/19 19:00 04/27/19 18:59 04/26/19 19:02 Sodium Chloride 1,000 ml @ 1,000 mls/hr 1X ONCE IV 04/26/19 19:45 04/26/19 20:44 DC 04/26/19 20:23 Insulin Human Regular (HumuLIN R VIAL) 10 unit 1X ONCE SQ 04/26/19 19:45 04/26/19 19:46 DC 04/26/19 20:23 Zolpidem Tartrate (Ambien) 5 mg PRN QHS PRN PO INSOMNIA 04/26/19 23:30 04/27/19 00:20 ALLERGIES ALLERGIES: Coded Allergies: No Known Drug Allergies (Unverified , 06/17/18) ROS Review of System 14 point ROS conducted with pertinent positives noted above in HPi PHYSICAL EXAM General: Alert, Oriented X3, Cooperative, No acute distress HEENT: Atraumatic, Mucous membr. moist/pink Lungs: Clear to auscultation, Normal air movement Heart: Regular rate, Normal S1, Normal S2 Abdomen: Soft, No tenderness Extremities: No edema, Normal pulses Skin: No breakdown, No significant lesion Neuro: Normal speech, Sensation intact Psych/Mental Status: Mental status NL, Mood NL MUSCULOSKELETAL: Osteoarthritic changes both hands VITALS/I&O VITALS/I&O: Vital Signs Date Time Temp Pulse Resp B/P (MAP) Pulse Ox O2 Delivery O2 Flow Rate FiO2 04/27/19 11:35 65 135/75 (95) 96 Room Air 04/27/19 07:50 98.0 16 98.0 I & O 04/26/19 04/26/19 04/27/19 15:00 23:00 07:00 Intake Total 1000 ml 500 ml Output Total 500 ml Balance 500 ml 500 ml LABS Lab: Laboratory Tests Test 04/26/19 18:44 04/26/19 18:45 04/26/19 19:38 04/26/19 21:22 Glucose (Fingerstick) 478 mg/dL (70-99) H 394 mg/dL (70-99) H White Blood Count 8.5 x10^3/uL (4.0-11.0) Red Blood Count 6.20 x10^6/uL (4.30-5.70) H Hemoglobin 15.5 g/dL (13.0-17.5) Hematocrit 46.3 % (39.0-53.0) Mean Corpuscular Volume 75 fL (79-100) L Mean Corpuscular Hemoglobin 25 pg (25-35) Mean Corpuscular Hemoglobin Concent 34 g/dL (31-37) Red Cell Distribution Width 13.7 % (11.5-14.5) Platelet Count 206 x10^3/uL (140-400) Neutrophils (%) (Auto) 70 % (31-73) Lymphocytes (%) (Auto) 23 % (24-48) L Monocytes (%) (Auto) 5 % (0-9) Eosinophils (%) (Auto) 2 % (0-3) Basophils (%) (Auto) 1 % (0-3) Neutrophils # (Auto) 6.0 x10^3/uL (1.8-7.7) Lymphocytes # (Auto) 1.9 x10^3/uL (1.0-4.8) Monocytes # (Auto) 0.4 x10^3/uL (0.0-1.1) Eosinophils # (Auto) 0.1 x10^3/uL (0.0-0.7) Basophils # (Auto) 0.1 x10^3/uL (0.0-0.2) Sodium Level 130 mmol/L (136-145) L Potassium Level 4.4 mmol/L (3.5-5.1) Chloride Level 95 mmol/L (98-107) L Carbon Dioxide Level 25 mmol/L (21-32) Anion Gap 10 (6-14) Blood Urea Nitrogen 13 mg/dL (8-26) Creatinine 1.1 mg/dL (0.7-1.3) Estimated GFR (Cockcroft-Gault) 69.5 BUN/Creatinine Ratio 12 (6-20) Glucose Level 582 mg/dL (70-99) *H Calcium Level 9.3 mg/dL (8.5-10.1) Magnesium Level 1.8 mg/dL (1.8-2.4) Total Bilirubin 0.6 mg/dL (0.2-1.0) Aspartate Amino Transferase (AST) 15 U/L (15-37) Alanine Aminotransferase (ALT) 20 U/L (16-63) Alkaline Phosphatase 75 U/L (46-116) Troponin I Quantitative < 0.017 ng/mL (0.000-0.055) TB-Zjf-A-Type Natriuretic Peptide 81 pg/mL (0-124) Total Protein 7.2 g/dL (6.4-8.2) Albumin 3.9 g/dL (3.4-5.0) Albumin/Globulin Ratio 1.2 (1.0-1.7) Urine Collection Type Unknown Urine Color Yellow Urine Clarity Clear Urine pH 5.0 Urine Specific Sharon >=1.030 Urine Protein Negative mg/dL (NEG-TRACE) Urine Glucose (UA) >=1000 mg/dL (NEG) Urine Ketones (Stick) Negative mg/dL (NEG) Urine Blood Negative (NEG) Urine Nitrite Negative (NEG) Urine Bilirubin Negative (NEG) Urine Urobilinogen Dipstick 0.2 mg/dL (0.2 mg/dL) Urine Leukocyte Esterase Negative (NEG) Urine RBC 0 /HPF (0-2) Urine WBC 0 /HPF (0-4) Urine Squamous Epithelial Cells Occ /LPF Urine Bacteria 0 /HPF (0-FEW) Urine Mucus Slight /LPF Test 04/26/19 23:55 04/27/19 03:00 04/27/19 07:54 04/27/19 11:35 Troponin I Quantitative < 0.017 ng/mL (0.000-0.055) < 0.017 ng/mL (0.000-0.055) White Blood Count 7.4 x10^3/uL (4.0-11.0) Red Blood Count 5.75 x10^6/uL (4.30-5.70) H Hemoglobin 14.3 g/dL (13.0-17.5) Hematocrit 42.4 % (39.0-53.0) Mean Corpuscular Volume 74 fL (79-100) L Mean Corpuscular Hemoglobin 25 pg (25-35) Mean Corpuscular Hemoglobin Concent 34 g/dL (31-37) Red Cell Distribution Width 13.8 % (11.5-14.5) Platelet Count 193 x10^3/uL (140-400) Neutrophils (%) (Auto) 57 % (31-73) Lymphocytes (%) (Auto) 34 % (24-48) Monocytes (%) (Auto) 6 % (0-9) Eosinophils (%) (Auto) 3 % (0-3) Basophils (%) (Auto) 1 % (0-3) Neutrophils # (Auto) 4.2 x10^3/uL (1.8-7.7) Lymphocytes # (Auto) 2.5 x10^3/uL (1.0-4.8) Monocytes # (Auto) 0.4 x10^3/uL (0.0-1.1) Eosinophils # (Auto) 0.2 x10^3/uL (0.0-0.7) Basophils # (Auto) 0.0 x10^3/uL (0.0-0.2) Sodium Level 138 mmol/L (136-145) Potassium Level 3.8 mmol/L (3.5-5.1) Chloride Level 101 mmol/L (98-107) Carbon Dioxide Level 27 mmol/L (21-32) Anion Gap 10 (6-14) Blood Urea Nitrogen 15 mg/dL (8-26) Creatinine 1.1 mg/dL (0.7-1.3) Estimated GFR (Cockcroft-Gault) 69.5 BUN/Creatinine Ratio 14 (6-20) Glucose Level 278 mg/dL (70-99) H Calcium Level 8.8 mg/dL (8.5-10.1) Total Bilirubin 0.4 mg/dL (0.2-1.0) Aspartate Amino Transferase (AST) 10 U/L (15-37) L Alanine Aminotransferase (ALT) 19 U/L (16-63) Alkaline Phosphatase 64 U/L (46-116) Total Protein 6.4 g/dL (6.4-8.2) Albumin 3.4 g/dL (3.4-5.0) Albumin/Globulin Ratio 1.1 (1.0-1.7) Glucose (Fingerstick) 239 mg/dL (70-99) H 282 mg/dL (70-99) H Laboratory Tests 04/26/19 18:45 04/27/19 03:00 Laboratory Tests 04/26/19 18:45 04/27/19 03:00 ASSESSMENT/PLAN ASSESSMENT/PLAN Chest pain, atypical; AMI ruled out. Possible GI in nature Hypertension; controlled Diabetes, II; uncontrolled GERD Anxiety H/o heavy alcoholism; quit 114 days ago Recommendations Echo to assess LV systolic function Lipids PPI Needs follow with PCP for DM management Consider outpatient MPI. JEANETTE GOMEZ MD 04/27/19 1923: CARDIAC CONSULT ASSESSMENT/PLAN ASSESSMENT/PLAN Patient seen and examined, Agree with [employer]'s assessment and plan. CP with atypical features IN ruled out Check 2D echo to assess LVF and r/o WMA Plan ischemic evaluation as outpatient Thank you for your consultation EBONY QUEEN APRN Apr 27, 2019 12:28 JEANETTE GOMEZ MD Apr 27, 2019 19:23
[2019-04-27 12:49] LABS: CHOLESTEROL/HDL RATIO 6.2
[2019-04-27] MEDS: CITALOPRAM 20 MG TABLET. PO SCH (13:09)
[2019-04-27] MEDS: busPIRone 5 MG TABLET. PO SCH (13:09)
[2019-04-27] MEDS: metFORMIN 500 MG TABLET PO SCH (13:09)
[2019-04-27] MEDS: GLIMEPIRIDE 2 MG TABLET. PO SCH (13:10)
[2019-04-27] MEDS: FAMOTIDINE 20 MG TABLET. PO SCH ×2 (13:10→21:28)
--- NOTE | 2019-04-27 14:51 | NUR ---
SS following for discharge planning. SS reviewed pt chart. Pt is from home with spouse and is currently on room air. SS will continue to follow for discharge planning.
--- NOTE | 2019-04-27 15:08 | PDOC1 ---
History and Physical Date of Admission: Date of Admission DATE: 04/27/19 TIME: 15:05 Chief Complaint: Problems: (1) Left knee sprain (2) Chest pain (3) Hypertension (4) Uncontrolled diabetes mellitus Chief Complain: Chest pain History of Present Illness: HPI: This is a 53-year-old male who presented to the emergency room with chest pain He has known diabetes and hypertension Describes pain is irritating His blood sugars have been running high The chest pain is in center of his chest no radiation Pain as pressure-like in sensation and dull He tried increasing his home meds but that didn't help Moving makes it worse sitting still makes it better I discussed the case with ER physician We are admitting the patient with consultation to cardiology Past Medical/Surgical History: PMH/PSH: Past Medical History: GERD, Hypertension Additional Past Medical Histor: Pre-diabeties Past Surgical History: Other Additional Past Surgical Histo: R shoulder, R knee scope, hernia repair Alcohol Use: Heavy Drug Use: None Allergies: Allergies: Coded Allergies: No Known Drug Allergies (Unverified , 06/17/18) Family History: Family History: Coronary disease Social History: Social Hisoty: He does not drink smoke or take drugs Current Medications: Current Medications Current Medications Aspirin (Children'S Aspirin) 324 mg 1X ONCE PO Last administered on 04/26/19at 19:01; Start 04/26/19 at 19:00; Stop 04/26/19 at 19:01; Status DC Nitroglycerin (Nitrostat) 0.4 mg PRN Q5MIN PRN SL CP RATING > 1/10 Last administered on 04/26/19at 19:02; Start 04/26/19 at 19:00; Stop 04/27/19 at 18:59 Sodium Chloride 1,000 ml @ 1,000 mls/hr 1X ONCE IV Last administered on 04/26/19at 20:23; Start 04/26/19 at 19:45; Stop 04/26/19 at 20:44; Status DC Insulin Human Regular (HumuLIN R VIAL) 10 unit 1X ONCE SQ Last administered on 04/26/19at 20:23; Start 04/26/19 at 19:45; Stop 04/26/19 at 19:46; Status DC Ondansetron HCl (Zofran) 4 mg PRN Q8HRS PRN IV NAUSEA/VOMITING; Start 04/26/19 at 21:00; Stop 04/27/19 at 20:59 Morphine Sulfate (Morphine Sulfate) 2 mg PRN Q2HR PRN IV PAIN; Start 04/26/19 at 21:00; Stop 04/27/19 at 20:59 Acetaminophen (Tylenol) 650 mg PRN Q4HRS PRN PO FEVER; Start 04/26/19 at 21:00; Stop 04/27/19 at 20:59 Nitroglycerin (Nitrostat) 0.4 mg PRN Q5MIN PRN SL CHEST PAIN; Start 04/26/19 at 21:00; Stop 04/27/19 at 20:59 Insulin Human Lispro (HumaLOG) 0-7 UNITS TIDWMEALS SQ Last administered on 04/27/19at 13:20; Start 04/27/19 at 08:00 Dextrose (Dextrose 50%-Water Syringe) 12.5 gm PRN Q15MIN PRN IV SEE COMMENTS; Start 04/26/19 at 21:00 Dextrose (Iv Dextrose 5%) 250 ml PRN Q15MIN PRN IV SEE COMMENTS; Start 04/26/19 at 21:00 Zolpidem Tartrate (Ambien) 5 mg PRN QHS PRN PO INSOMNIA Last administered on 04/27/19at 00:20; Start 04/26/19 at 23:30 Benzonatate (Tessalon Perle) 100 mg PRN TID PRN PO COUGH; Start 04/26/19 at 23:30 Buspirone HCl (Buspar) 5 mg DAILY PO Last administered on 04/27/19at 13:09; Start 04/27/19 at 09:00 Doxepin HCl (SINequan) 10 mg HS PO ; Start 04/27/19 at 21:00 Acetaminophen/ Hydrocodone Bitart (Lortab 7.5/325) 1 tab PRN Q4HRS PRN PO PAIN; Start 04/26/19 at 23:30 Metformin HCl (Glucophage) 500 mg DAILYWBKFT PO Last administered on 04/27/19at 13:09; Start 04/27/19 at 08:00 Trazodone HCl (Desyrel) 100 mg PRN QHS PRN PO insomnia ; Start 04/26/19 at 23:30 Citalopram Hydrobromide (CeleXA) 20 mg DAILY PO Last administered on 04/27/19at 13:09; Start 04/27/19 at 09:00 Glimepiride (Amaryl) 1 mg DAILY PO Last administered on 04/27/19at 13:10; Start 04/27/19 at 09:00 Hydroxyzine HCl (Atarax) 25 mg PRN Q4HRS PRN PO ALLERGIES; Start 04/26/19 at 23:30 Non-Formulary Medication (Melatonin ) 40 mg HS PO ; Start 04/27/19 at 21:00; Status UNV Famotidine (Pepcid) 20 mg BID PO Last administered on 04/27/19at 13:10; Start 04/27/19 at 09:00 Active Scripts Active Tessalon Perle (Benzonatate) 100 Mg Capsule 1 Cap PO TID PRN Proair Hfa (Albuterol Sulfate) 8.5 Gm Hfa.aer.ad 1 Puff INH PRN Q6HRS PRN Neeses 7.5-325 Tablet (Acetaminophen/Hydrocodone Bitart) 1 Each Tablet 1 Tab PO PRN Q4HRS PRN Reported Glimepiride 1 Mg Tablet 1 Mg PO DAILY Buspirone Hcl 5 Mg Tablet 5 Mg PO TID Hydroxyzine Pamoate 25 Mg Capsule 25 Mg PO PRN Q4HRS PRN Melatonin 10 Mg Tab.mphase 40 Mg PO HS Trazodone Hcl 100 Mg Tablet 100 Mg PO PRN HS Escitalopram Oxalate 10 Mg Tablet 10 Mg PO DAILY Claritin (Loratadine) 10 Mg Tablet 10 Mg PO DAILY Ranitidine Hcl 150 Mg Tablet 150 Mg PO BID Doxepin Hcl 10 Mg Capsule 10 Mg PO HS Metformin Hcl 500 Mg Tablet 500 Mg PO DAILY ROS: Review of Systems Review of System REVIEW OF SYSTEMS: GENERAL: Denies weakness SKIN: No bruising, hair changes or rashes. EYES: No blurred, double or loss of vision. NOSE AND THROAT: No history of nosebleeds, hoarseness or sore throat. HEART: Complains of chest pain LUNGS: Denies cough, hemoptysis, wheezing or shortness of breath. GASTROINTESTINAL: Denies changes in appetite, nausea, vomiting, diarrhea or constipation. GENITOURINARY: No history of frequency, urgency, hesitancy or nocturia. NEUROLOGIC: Denies history of numbness, tingling, or tremor. PSYCHIATRIC: No history of panic, anxiety or depression. ENDOCRINE: No history of heat or cold intolerance, polyuria or polydipsia. EXTREMITIES: Denies joint pain, pain on walking or stiffness. Physical Exam: Vital Signs: Vital Signs Date Time Temp Pulse Resp B/P (MAP) Pulse Ox O2 Delivery O2 Flow Rate FiO2 04/27/19 11:35 65 135/75 (95) 96 Room Air 04/27/19 07:50 98.0 16 98.0 Physcial Exam: GEN: No apparent distress. Alert and oriented HEENT: Normal cephalic, atraumatic, external auditory canals are patent EYES: Extraocular muscles are intact, pupil are equally round and reactive to light and accommodation MUSCULOSKELETAL: Well developed , well nourished, good range of motion ENDOCRINE: No thyromegaly was palpated LYMPHATICS: No cervical chain or axillary nodes were noted HEMATOPOIETIC: No bruising NECK: Supple, no JVD, no thyromegaly was noted LUNGS: Clear to auscultation in all lung [place] without rhonchi or wheezing HEART: RRR, S!, S2 present. Peripheral pulses intact, no obvious murmurs noted ABDOMEN: Soft, nontender. Positive bowel sounds, no organomegaly, normal angela l sounds EXTREMITIES: Without clubbing, cyanosis, or edema. Pedal pulses intact. Negative Homans sign NEUROLOGIC: Normal speech and tone. A&O x 3, moves all extremities, no obvious focal deficits PSYCHIATRIC: Normal affect, normal mood. Stable SKIN: No ulcerations or rashes, good skin turgor, no jaundice VASCULAR: Good capillary refill, neurovascular bundle appears to be intact Labs: Labs: Laboratory Tests Test 04/26/19 18:44 04/26/19 18:45 04/26/19 19:38 04/26/19 21:22 Glucose (Fingerstick) 478 mg/dL (70-99) 394 mg/dL (70-99) White Blood Count 8.5 x10^3/uL (4.0-11.0) Red Blood Count 6.20 x10^6/uL (4.30-5.70) Hemoglobin 15.5 g/dL (13.0-17.5) Hematocrit 46.3 % (39.0-53.0) Mean Corpuscular Volume 75 fL (79-100) Mean Corpuscular Hemoglobin 25 pg (25-35) Mean Corpuscular Hemoglobin Concent 34 g/dL (31-37) Red Cell Distribution Width 13.7 % (11.5-14.5) Platelet Count 206 x10^3/uL (140-400) Neutrophils (%) (Auto) 70 % (31-73) Lymphocytes (%) (Auto) 23 % (24-48) Monocytes (%) (Auto) 5 % (0-9) Eosinophils (%) (Auto) 2 % (0-3) Basophils (%) (Auto) 1 % (0-3) Neutrophils # (Auto) 6.0 x10^3/uL (1.8-7.7) Lymphocytes # (Auto) 1.9 x10^3/uL (1.0-4.8) Monocytes # (Auto) 0.4 x10^3/uL (0.0-1.1) Eosinophils # (Auto) 0.1 x10^3/uL (0.0-0.7) Basophils # (Auto) 0.1 x10^3/uL (0.0-0.2) Sodium Level 130 mmol/L (136-145) Potassium Level 4.4 mmol/L (3.5-5.1) Chloride Level 95 mmol/L (98-107) Carbon Dioxide Level 25 mmol/L (21-32) Anion Gap 10 (6-14) Blood Urea Nitrogen 13 mg/dL (8-26) Creatinine 1.1 mg/dL (0.7-1.3) Estimated GFR (Cockcroft-Gault) 69.5 BUN/Creatinine Ratio 12 (6-20) Glucose Level 582 mg/dL (70-99) Calcium Level 9.3 mg/dL (8.5-10.1) Magnesium Level 1.8 mg/dL (1.8-2.4) Total Bilirubin 0.6 mg/dL (0.2-1.0) Aspartate Amino Transf (AST/SGOT) 15 U/L (15-37) Alanine Aminotransferase (ALT/SGPT) 20 U/L (16-63) Alkaline Phosphatase 75 U/L (46-116) Troponin I Quantitative < 0.017 ng/mL (0.000-0.055) OG-Dxa-X-Type Natriuretic Peptide 81 pg/mL (0-124) Total Protein 7.2 g/dL (6.4-8.2) Albumin 3.9 g/dL (3.4-5.0) Albumin/Globulin Ratio 1.2 (1.0-1.7) Urine Collection Type Unknown Urine Color Yellow Urine Clarity Clear Urine pH 5.0 Urine Specific Stanley >=1.030 Urine Protein Negative mg/dL (NEG-TRACE) Urine Glucose (UA) >=1000 mg/dL (NEG) Urine Ketones (Stick) Negative mg/dL (NEG) Urine Blood Negative (NEG) Urine Nitrite Negative (NEG) Urine Bilirubin Negative (NEG) Urine Urobilinogen Dipstick 0.2 mg/dL (0.2 mg/dL) Urine Leukocyte Esterase Negative (NEG) Urine RBC 0 /HPF (0-2) Urine WBC 0 /HPF (0-4) Urine Squamous Epithelial Cells Occ /LPF Urine Bacteria 0 /HPF (0-FEW) Urine Mucus Slight /LPF Test 04/26/19 23:55 04/27/19 03:00 04/27/19 07:54 04/27/19 11:35 Troponin I Quantitative < 0.017 ng/mL (0.000-0.055) < 0.017 ng/mL (0.000-0.055) White Blood Count 7.4 x10^3/uL (4.0-11.0) Red Blood Count 5.75 x10^6/uL (4.30-5.70) Hemoglobin 14.3 g/dL (13.0-17.5) Hematocrit 42.4 % (39.0-53.0) Mean Corpuscular Volume 74 fL (79-100) Mean Corpuscular Hemoglobin 25 pg (25-35) Mean Corpuscular Hemoglobin Concent 34 g/dL (31-37) Red Cell Distribution Width 13.8 % (11.5-14.5) Platelet Count 193 x10^3/uL (140-400) Neutrophils (%) (Auto) 57 % (31-73) Lymphocytes (%) (Auto) 34 % (24-48) Monocytes (%) (Auto) 6 % (0-9) Eosinophils (%) (Auto) 3 % (0-3) Basophils (%) (Auto) 1 % (0-3) Neutrophils # (Auto) 4.2 x10^3/uL (1.8-7.7) Lymphocytes # (Auto) 2.5 x10^3/uL (1.0-4.8) Monocytes # (Auto) 0.4 x10^3/uL (0.0-1.1) Eosinophils # (Auto) 0.2 x10^3/uL (0.0-0.7) Basophils # (Auto) 0.0 x10^3/uL (0.0-0.2) Sodium Level 138 mmol/L (136-145) Potassium Level 3.8 mmol/L (3.5-5.1) Chloride Level 101 mmol/L (98-107) Carbon Dioxide Level 27 mmol/L (21-32) Anion Gap 10 (6-14) Blood Urea Nitrogen 15 mg/dL (8-26) Creatinine 1.1 mg/dL (0.7-1.3) Estimated GFR (Cockcroft-Gault) 69.5 BUN/Creatinine Ratio 14 (6-20) Glucose Level 278 mg/dL (70-99) Calcium Level 8.8 mg/dL (8.5-10.1) Total Bilirubin 0.4 mg/dL (0.2-1.0) Aspartate Amino Transf (AST/SGOT) 10 U/L (15-37) Alanine Aminotransferase (ALT/SGPT) 19 U/L (16-63) Alkaline Phosphatase 64 U/L (46-116) Total Protein 6.4 g/dL (6.4-8.2) Albumin 3.4 g/dL (3.4-5.0) Albumin/Globulin Ratio 1.1 (1.0-1.7) Triglycerides Level 311 mg/dL (0-150) Cholesterol Level 185 mg/dL (0-200) LDL Cholesterol, Calculated 93 mg/dL (0-100) VLDL Cholesterol, Calculated 62 mg/dL (0-40) Non-HDL Cholesterol Calculated 155 mg/dL (0-129) HDL Cholesterol 30 mg/dL (40-60) Cholesterol/HDL Ratio 6.2 Glucose (Fingerstick) 239 mg/dL (70-99) 282 mg/dL (70-99) Laboratory Tests Test 04/26/19 18:44 04/26/19 18:45 04/26/19 19:38 04/26/19 21:22 Glucose (Fingerstick) 478 mg/dL (70-99) 394 mg/dL (70-99) White Blood Count 8.5 x10^3/uL (4.0-11.0) Red Blood Count 6.20 x10^6/uL (4.30-5.70) Hemoglobin 15.5 g/dL (13.0-17.5) Hematocrit 46.3 % (39.0-53.0) Mean Corpuscular Volume 75 fL (79-100) Mean Corpuscular Hemoglobin 25 pg (25-35) Mean Corpuscular Hemoglobin Concent 34 g/dL (31-37) Red Cell Distribution Width 13.7 % (11.5-14.5) Platelet Count 206 x10^3/uL (140-400) Neutrophils (%) (Auto) 70 % (31-73) Lymphocytes (%) (Auto) 23 % (24-48) Monocytes (%) (Auto) 5 % (0-9) Eosinophils (%) (Auto) 2 % (0-3) Basophils (%) (Auto) 1 % (0-3) Neutrophils # (Auto) 6.0 x10^3/uL (1.8-7.7) Lymphocytes # (Auto) 1.9 x10^3/uL (1.0-4.8) Monocytes # (Auto) 0.4 x10^3/uL (0.0-1.1) Eosinophils # (Auto) 0.1 x10^3/uL (0.0-0.7) Basophils # (Auto) 0.1 x10^3/uL (0.0-0.2) Sodium Level 130 mmol/L (136-145) Potassium Level 4.4 mmol/L (3.5-5.1) Chloride Level 95 mmol/L (98-107) Carbon Dioxide Level 25 mmol/L (21-32) Anion Gap 10 (6-14) Blood Urea Nitrogen 13 mg/dL (8-26) Creatinine 1.1 mg/dL (0.7-1.3) Estimated GFR (Cockcroft-Gault) 69.5 BUN/Creatinine Ratio 12 (6-20) Glucose Level 582 mg/dL (70-99) Calcium Level 9.3 mg/dL (8.5-10.1) Magnesium Level 1.8 mg/dL (1.8-2.4) Total Bilirubin 0.6 mg/dL (0.2-1.0) Aspartate Amino Transf (AST/SGOT) 15 U/L (15-37) Alanine Aminotransferase (ALT/SGPT) 20 U/L (16-63) Alkaline Phosphatase 75 U/L (46-116) Troponin I Quantitative < 0.017 ng/mL (0.000-0.055) LQ-Ngz-A-Type Natriuretic Peptide 81 pg/mL (0-124) Total Protein 7.2 g/dL (6.4-8.2) Albumin 3.9 g/dL (3.4-5.0) Albumin/Globulin Ratio 1.2 (1.0-1.7) Urine Collection Type Unknown Urine Color Yellow Urine Clarity Clear Urine pH 5.0 Urine Specific Stanley >=1.030 Urine Protein Negative mg/dL (NEG-TRACE) Urine Glucose (UA) >=1000 mg/dL (NEG) Urine Ketones (Stick) Negative mg/dL (NEG) Urine Blood Negative (NEG) Urine Nitrite Negative (NEG) Urine Bilirubin Negative (NEG) Urine Urobilinogen Dipstick 0.2 mg/dL (0.2 mg/dL) Urine Leukocyte Esterase Negative (NEG) Urine RBC 0 /HPF (0-2) Urine WBC 0 /HPF (0-4) Urine Squamous Epithelial Cells Occ /LPF Urine Bacteria 0 /HPF (0-FEW) Urine Mucus Slight /LPF Test 04/26/19 23:55 04/27/19 03:00 04/27/19 07:54 04/27/19 11:35 Troponin I Quantitative < 0.017 ng/mL (0.000-0.055) < 0.017 ng/mL (0.000-0.055) White Blood Count 7.4 x10^3/uL (4.0-11.0) Red Blood Count 5.75 x10^6/uL (4.30-5.70) Hemoglobin 14.3 g/dL (13.0-17.5) Hematocrit 42.4 % (39.0-53.0) Mean Corpuscular Volume 74 fL (79-100) Mean Corpuscular Hemoglobin 25 pg (25-35) Mean Corpuscular Hemoglobin Concent 34 g/dL (31-37) Red Cell Distribution Width 13.8 % (11.5-14.5) Platelet Count 193 x10^3/uL (140-400) Neutrophils (%) (Auto) 57 % (31-73) Lymphocytes (%) (Auto) 34 % (24-48) Monocytes (%) (Auto) 6 % (0-9) Eosinophils (%) (Auto) 3 % (0-3) Basophils (%) (Auto) 1 % (0-3) Neutrophils # (Auto) 4.2 x10^3/uL (1.8-7.7) Lymphocytes # (Auto) 2.5 x10^3/uL (1.0-4.8) Monocytes # (Auto) 0.4 x10^3/uL (0.0-1.1) Eosinophils # (Auto) 0.2 x10^3/uL (0.0-0.7) Basophils # (Auto) 0.0 x10^3/uL (0.0-0.2) Sodium Level 138 mmol/L (136-145) Potassium Level 3.8 mmol/L (3.5-5.1) Chloride Level 101 mmol/L (98-107) Carbon Dioxide Level 27 mmol/L (21-32) Anion Gap 10 (6-14) Blood Urea Nitrogen 15 mg/dL (8-26) Creatinine 1.1 mg/dL (0.7-1.3) Estimated GFR (Cockcroft-Gault) 69.5 BUN/Creatinine Ratio 14 (6-20) Glucose Level 278 mg/dL (70-99) Calcium Level 8.8 mg/dL (8.5-10.1) Total Bilirubin 0.4 mg/dL (0.2-1.0) Aspartate Amino Transf (AST/SGOT) 10 U/L (15-37) Alanine Aminotransferase (ALT/SGPT) 19 U/L (16-63) Alkaline Phosphatase 64 U/L (46-116) Total Protein 6.4 g/dL (6.4-8.2) Albumin 3.4 g/dL (3.4-5.0) Albumin/Globulin Ratio 1.1 (1.0-1.7) Triglycerides Level 311 mg/dL (0-150) Cholesterol Level 185 mg/dL (0-200) LDL Cholesterol, Calculated 93 mg/dL (0-100) VLDL Cholesterol, Calculated 62 mg/dL (0-40) Non-HDL Cholesterol Calculated 155 mg/dL (0-129) HDL Cholesterol 30 mg/dL (40-60) Cholesterol/HDL Ratio 6.2 Glucose (Fingerstick) 239 mg/dL (70-99) 282 mg/dL (70-99) Images: Images Chest x-ray without acute changes Assessment/Plan Assessment/Plan Chest pain rule out coronary disease Plan Serial enzymes Serial EKGs Consult cardiology Cardiac monitoring Home meds DVT prophylaxis Full code LOAN FOSS III DO Apr 27, 2019 15:08
[2019-04-27 15:49] VITALS: BP 139/82
[2019-04-27] MEDS: ASPIRIN ENTERIC COATED 81 MG TABLET.DR. PO SCH (17:48)
--- NOTE | 2019-04-27 18:15 | NUR ---
Echo is still not read. Dr. Julio said to keep patient over night & we will see what it says tomorrow.
[2019-04-27 19:51] VITALS: BP 120/76
[2019-04-27] MEDS ORDERED: MELATONIN 40 MG PO SCH (21:00)
[2019-04-27] MEDS ORDERED: ATORVASTATIN CALCIUM 40 MG TABLET. PO SCH (21:00)
[2019-04-27] MEDS ORDERED: DOXEPIN HCL 10 MG CAPSULE. PO SCH (21:00)
[2019-04-27 23:07] VITALS: BP 142/78
[2019-04-28 02:08] LABS: HEMOGLOBIN A1C 11.4 % (4.8-5.6)
[2019-04-28 03:56] VITALS: BP 149/84
[2019-04-28 07:27] VITALS: BP 132/80
--- NOTE | 2019-04-28 08:28 | CARD ---
MR#: [id number] Date of Study: 04/27/2019 Ordering Physician: EBONY QUEEN, Referring Physician: EBONY QUEEN, Tech: Annetta Anguiano APPROVED REPORT EXAM: Two-dimensional and M-mode echocardiogram with Doppler and color Doppler. Other Information Quality : AverageHR: 68bpm INDICATION Chest Pain RISK FACTORS Hypertension Diabetes 2D DIMENSIONS RVDd3.5 (2.9-3.5cm)Left Atrium(2D)3.6 (1.6-4.0cm) IVSd1.2 (0.7-1.1cm)Aortic Root(2D)3.4 (2.0-3.7cm) LVDd5.1 (3.9-5.9cm)LVOT Diameter2.2 (1.8-2.4cm) PWd1.1 (0.7-1.1cm)LVDs2.9 (2.5-4.0cm) FS (%) 42.6 %SV90.4 ml LVEF(%)73.4 (>50%) Aortic Valve AoV Peak Zana.148.3cm/sAoV VTI27.7cm AO Peak GR.8.8mmHgLVOT VTI 22.54cm AO Mean GR.5mmHg Mitral Valve MV E Qwwiujgm05.0cm/sMV E Peak Gr.3mmHg MV DECEL [id number] A Edyccqlq85.0cm/s MV E Mean Gr.2mmHgE/A Ratio1.3 TDI Lateral E' P. V9.53cm/sMedial E' P. V8.62cm/s E/Lateral E'9.7E/Medial E'10.7 Tricuspid Valve TR P. Soxsdjaa968oc/sTR Peak Gr.18mmHg Pulmonary Vein S1 Yiaorfbs06.4cm/sS2 Rtmqyilk74.03cm/s D2 Hfclnegr67.0cm/sPVa [id number] LEFT VENTRICLE The left ventricle is normal size. There is mild concentric left ventricular hypertrophy. The left ve ntricular systolic function is normal. The Ejection Fraction is 55%. There is normal LV segmental wal l motion. The left ventricular diastolic function and filling is normal for age. RIGHT VENTRICLE The right ventricle is normal size. There is normal right ventricular wall thickness. The right ventr icular systolic function is normal. ATRIA The left atrium size is normal. The right atrium size is normal. The interatrial septum is intact wit h no evidence for an atrial septal defect or patent foramen ovale as noted on 2-D or Doppler imaging. AORTIC VALVE The aortic valve is normal in structure and function. Doppler and Color Flow revealed no significant aortic regurgitation. There is no significant aortic valvular stenosis. MITRAL VALVE The mitral valve is normal in structure and function. There is no evidence of mitral valve prolapse. There is no mitral valve stenosis. Doppler and Color-flow revealed trace mitral regurgitation. TRICUSPID VALVE The tricuspid valve is normal in structure and function. Doppler and Color Flow revealed no tricuspid valve regurgitation noted. There is no tricuspid valve stenosis. PULMONIC VALVE The pulmonic valve is not well visualized. Doppler and Color Flow revealed no pulmonic valvular regur gitation. GREAT VESSELS The aortic root is normal in size. The IVC is normal in size and collapses >50% with inspiration. PERICARDIAL EFFUSION There is no evidence of significant pericardial effusion. Critical Notification Critical Value: No <Conclusion> The left ventricular systolic function is normal. The Ejection Fraction is 55%. There is normal LV segmental wall motion. Doppler and Color-flow revealed trace mitral regurgitation. There is no evidence of significant pericardial effusion. Signed by : Ravindra Mitchell, Electronically Approved : 04/28/2019 08:27:47
[2019-04-28] MEDS: FAMOTIDINE 20 MG TABLET. PO SCH (09:11)
[2019-04-28] MEDS: busPIRone 5 MG TABLET. PO SCH (09:11)
[2019-04-28] MEDS: ASPIRIN ENTERIC COATED 81 MG TABLET.DR. PO SCH (09:12)
[2019-04-28] MEDS: CITALOPRAM 20 MG TABLET. PO SCH (09:12)
[2019-04-28] MEDS: GLIMEPIRIDE 2 MG TABLET. PO SCH (09:12)
[2019-04-28] MEDS: metFORMIN 500 MG TABLET PO SCH (09:12)
[2019-04-28] MEDS: INSULIN LISPRO 300 UNITS/3 ML VIAL. SQ SCH ×2 (09:19→12:00)
[2019-04-28 11:28] VITALS: BP 150/82
--- NOTE | 2019-04-28 11:58 | PDOC ---
[facility] PROGRESS NOTE Chief Complaint Chief Complaint Chest pain rule out coronary disease Hypertension DM History of Present Illness History of Present Illness 04/28/19 Pt seen and examined He was laying in bed He looks good DW pt the need for better glucose control We discussed sending him home with insulin after d/c but he wants to follow up with his PCP Dr. Menjivar He has an appointment with his PCP tomorrow and will f/u there after d/c DW pt's DW RN Chart reviewed Vitals/I&O Vitals/I&O: Vital Signs Date Time Temp Pulse Resp B/P (MAP) Pulse Ox O2 Delivery O2 Flow Rate FiO2 04/28/19 11:28 97.7 68 16 150/82 (104) 96 Room Air 97.7 I & O 04/27/19 04/27/19 04/28/19 15:00 23:00 07:00 Intake Total 0 ml 1420 ml 300 ml Output Total 220 ml 1325 ml Balance 0 ml 1200 ml -1025 ml Physical Exam General: Alert, Oriented X3, Cooperative, No acute distress Heart: Regular rate, Normal S1, Normal S2 Abdomen: Soft, No tenderness Extremities: No edema, Normal pulses Skin: No breakdown, No significant lesion Labs Labs: Laboratory Tests Test 04/27/19 17:24 04/27/19 20:53 04/28/19 07:29 04/28/19 10:14 Glucose (Fingerstick) 234 mg/dL (70-99) 256 mg/dL (70-99) 294 mg/dL (70-99) 339 mg/dL (70-99) Test 04/28/19 11:29 Glucose (Fingerstick) 271 mg/dL (70-99) Review of Systems Review of Systems: no c/o JON no c/o CP Assessment and Plan Assessmemt and Plan Problems Medical Problems: (1) Chest pain Status: Acute (2) Hypertension Status: Acute (3) Uncontrolled diabetes mellitus Status: Acute Assessment/Plan Chest pain rule out coronary disease Hypertension DM Plan Cardiology following. ECHO EF 55% Continue home meds DVT prophylaxis Full code Probable d/c today pending specialist Comment Review of Relevant I have reviewed the following items ramón (where applicable) has been applied. Medications: Current Medications Medications (Trade) Dose Ordered Sig/Ashleigh Route PRN Reason Start Time Stop Time Status Last Admin Dose Admin Doxepin HCl (SINequan) 10 mg HS PO 04/27/19 21:00 04/27/19 21:27 Atorvastatin Calcium (Lipitor) 40 mg QHS PO 04/27/19 21:00 04/27/19 21:28 Aspirin (Ecotrin) 81 mg DAILYWBKFT PO 04/27/19 17:00 04/28/19 09:12 LOAN FOSS III DO Apr 28, 2019 11:58
--- NOTE | 2019-04-28 12:23 | PDOC ---
EBONY QUEEN APRN 04/28/19 1223: CARDIO Progress Notes Date and Time Date of Service 04/28/19 Time of Evaluation 1210 Subjective Subjective: No Chest Pain, No shortness of breath, No Palpitations Vitals Vitals Vital Signs Date Time Temp Pulse Resp B/P (MAP) Pulse Ox O2 Delivery O2 Flow Rate FiO2 04/28/19 11:28 97.7 68 16 150/82 (104) 96 Room Air 97.7 Weight Weight [ ] Input and Output Intake and Output Intake and Output 04/28/19 07:00 Intake Total 1720 ml Output Total 1545 ml Balance 175 ml Intake Oral 1720 ml Output Urine Total 1545 ml # Voids 5 # Bowel Movements 1 Laboratory Labs Laboratory Tests Test 04/27/19 17:24 04/27/19 20:53 04/28/19 07:29 04/28/19 10:14 Glucose (Fingerstick) 234 mg/dL (70-99) 256 mg/dL (70-99) 294 mg/dL (70-99) 339 mg/dL (70-99) Test 04/28/19 11:29 Glucose (Fingerstick) 271 mg/dL (70-99) Physical Exam HEENT: Neck Supple W Full Motion Chest: Symmetric LUNGS: Clear to Auscultation Heart: S1S2, RRR Abdomen: Soft N/T Extremities: No Edema Neurology: alert, oriented, follow commands Assessment Assessment 1. Chest pain, atypical; AMI ruled out. Possible GI in nature. Echo with pr eserved LV systolic function 2. Hypertension; controlled 3. Diabetes, II; uncontrolled. as per PCP 4. GERD 5. Anxiety 6. H/o heavy alcoholism; quit 114 days ago Recommendations Statin therapy Will arrange outpatient MPI. May discharge from a CV standpoint and f/u in our office with Dr. Mitchell as scheduled. JEANETTE MITCHELL MD 04/28/19 1611: CARDIO Progress Notes Assessment Assessment Patient seen and examined. Agree with PRIVATE DUTY AIDE's assessment and plan. Chest pain most probably musculoskeletal 2-D echo showed normal LV function without any wall motion abnormalities Plan for outpatient ischemic evaluation EBONY QUEEN APRN Apr 28, 2019 12:23 JEANETTE MITCHELL MD Apr 28, 2019 16:11
[2019-04-28] MEDS ORDERED: INSULIN LISPRO 300 UNITS/3 ML VIAL. SQ ONE (13:00)
[2019-04-28] MEDS ORDERED: ASPI-612 PO (13:50)
[2019-04-28] MEDS ORDERED: ASPI-630 PO (13:50)
[2019-04-28] MEDS ORDERED: ATOR40TA59 PO (13:51)
--- NOTE | 2019-04-28 14:59 | NUR ---
Discharge Note: [facility] [address] [place] [address] Discharge instructions and discharge home medications reviewed with Patient and a copy given. All questions have been answered and understanding verbalized. The following instructions and handouts were given: discharge instructions, follow up appointments, prescription, DM info, CP info. Discontinued lines and drains: Peripheral IV intact. Patient discharged to Home or Self Care with Spouse via [facility] at 1459. Blood glucose went down to 156 after [address] Gonzales had wanted it to be below 200. Patient instructed to take blood sugar when he gets home. Patient has appt with Dr. Menjivar tomorrow 04/29.
== END 2019-04-28 14:57 | disposition home or self-care (01) | DRG 313 ==
LOC: ER 18:33 → 2 NORTH 21:07 → OBSVTOIN 04-27 18:18
PROVIDERS: ADMIT Internal Medicine; ATTEND Internal Medicine
DX: R07.89 Other chest pain (principal); E11.65 Type 2 diabetes mellitus with hyperglycemia; F41.9 Anxiety disorder, unspecified; I10 Essential (primary) hypertension; K21.9 Gastro-esophageal reflux disease without esophagitis; M19.90 Unspecified osteoarthritis, unspecified site; Z79.899 Other long term (current) drug therapy
CPT/HCPCS: 36415; 71045; 80053; 80061; 81001; 82962; 83036; 83735; 83880; 84484; 85025; 93005; 93306; G0378; G0379; J1815; J7030

== ENCOUNTER → 2019-07-05 | Outpatient (CLI) | payer BC ==
[~2019-07-05] MED LIST changes: +ASPI-612 PO; +ASPI-630 PO; +ATOR40TA59 PO; +BUSP5TAB PO; +DOXE10CA PO; +ESCI10TA2 PO; +GLIM1TAB7 PO; +HYDR25CA75 PO; +LORA10TA68 PO; +MELA10TA2 PO; +METF500T16 PO; +RANI150T2 PO; +TRAZ-123 PO
--- NOTE | 2019-07-05 12:12 | KCIC ---
SHOULDER 2+V RIGHT History: Right shoulder pain, decreased range of motion. Fell a couple of weeks ago. FINDINGS: No evidence of acute fracture. No aggressive bone destruction. Joint spaces are intact without evidence of dislocation. IMPRESSION: No evidence of acute radiographic abnormality. Electronically signed by: Naldo Hassan MD (07/05/2019 12:09 PM) [id number]
== END | disposition home or self-care (01) ==
LOC: KCIC 11:33
PROVIDERS: ATTEND Nurse Practitioner Family
DX: M25.511 Pain in right shoulder (principal); W19.XXXA Unspecified fall, initial encounter; Y93.89 Activity, other specified; Y92.89 Other specified places as the place of occurrence of the external cause; Y99.8 Other external cause status
CPT/HCPCS: 73030

== ENCOUNTER → 2019-07-13 | Outpatient (CLI) | payer BC ==
--- NOTE | 2019-07-13 09:59 | KCIC ---
MRI right shoulder without contrast HISTORY: Right shoulder weakness. Right shoulder pain. COMPARISON: Right shoulder x-rays July 05, 2019. FINDINGS: No bone contusion, fracture or osteonecrosis. Small subcortical cysts along the lateral humeral head subjacent of the rotator cuff tendon footplate. Very mild spurring of the glenoid. Acromioclavicular joint demonstrates arthrosis with lateral clavicle osteophyte and acromion osteophyte, minimal spurring of the acromion, there is a type I acromion morphology. Biceps tendon intact. Posterior labrum demonstrates linear fluid intensity along the free edge likely indicating a small labral tear, the remainder of the labrum is grossly intact. There is very mild joint capsule edema with miniscule volume of joint fluid. Supraspinatus tendinosis, there is a low-grade partial thickness rim rent tear of the tendon footplate which may extend to the bursal surface involving less than 50 percent of the tendon thickness. No atrophy or edema of the muscle evident. Infraspinatus demonstrates tendinosis at the tendon footplate as well as low-grade partial thickness rim rent tear which may involve the bursal surface overlying the subcortical cysts of the humeral head, tear involves less than 50 percent of the tendon thickness. No edema or atrophy of the muscle. Teres minor tendon intact. Subscapularis tendon intact. No edema or atrophy of the muscles. IMPRESSION: 1. Supraspinatus and infraspinatus tendinosis and low-grade partial thickness rim rent tears of the tendon footplate as described above. 2. Miniscule volume of joint fluid. There is mild joint pericapsular soft tissue edema. This could be posttraumatic given the history of a recent fall injury. Adhesive capsulitis would also be a consideration. Given the absence of a significant volume of joint fluid, an infectious or inflammatory arthropathy is unlikely. 3. 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 There is a small tear of the posterior labrum. Biceps tendon intact. 4. Acromioclavicular arthrosis as described above. Electronically signed by: Leandro Guevara MD (07/13/2019 9:56 AM) [id number]
== END | disposition home or self-care (01) ==
LOC: KCIC MRI 08:30
PROVIDERS: ATTEND Family Medicine
DX: S43.491A Other sprain of right shoulder joint, initial encounter (principal); S46.011A Strain of muscle(s) and tendon(s) of the rotator cuff of right shoulder, initial encounter; M19.011 Primary osteoarthritis, right shoulder; M25.711 Osteophyte, right shoulder; X58.XXXA Exposure to other specified factors, initial encounter; Y93.89 Activity, other specified; Y92.89 Other specified places as the place of occurrence of the external cause; Y99.8 Other external cause status
CPT/HCPCS: 73221

== ENCOUNTER → 2021-03-01 | Outpatient (CLI) | payer BC ==
[~2021-03-01] MED LIST changes: -ASPI-612 PO; +ASPI-886 PO; -ESCI10TA2 PO; +ESCI10TA90 PO
--- NOTE | 2021-03-01 14:32 | KCIC ---
XR HAND_LEFT 3 VIEWS DATE: 03/01/2021 2:04 PM INDICATION: FALL 6 DAYS AGO, PAIN IN LEFT HAND 4TH METACARPAL COMPARISON: None. FINDINGS: Bones: Acute fracture of the fourth metacarpal diaphysis with slight dorsal displacement of the dista l metacarpal. Joints: Moderate degenerative changes of the first CMC joint. Miscellaneous: None. IMPRESSION: Acute slightly displaced fourth metacarpal fracture Electronically signed by: Kolby Wolf MD (03/01/2021 2:30 PM) MARK
== END ==
LOC: KCIC 13:37
PROVIDERS: ATTEND Nurse Practitioner
DX: S62.305A Unspecified fracture of fourth metacarpal bone, left hand, initial encounter for closed fracture (principal); M18.12 Unilateral primary osteoarthritis of first carpometacarpal joint, left hand; W19.XXXA Unspecified fall, initial encounter; Y93.89 Activity, other specified; Y92.89 Other specified places as the place of occurrence of the external cause; Y99.8 Other external cause status
CPT/HCPCS: 73130